=== PATIENT | female | born 1930 | race Caucasian/White ===

== ENCOUNTER 2018-04-01 21:08 | Emergency (ER) | payer OTHER ==
--- NOTE | 2018-04-01 21:18 | PDOC ---
History of Present Illness - General Stated Complaint: NOSE BLEEDS Time Seen by Provider: 04/01/18 21:18 Past History - Past Medical History Allergies/Adverse Reactions: Allergies Allergy/AdvReac Type Severity Reaction Status Date / Time No Known Drug Allergies Allergy Mild Verified 04/01/18 21:27 Home Medications: Ambulatory Orders Bimatoprost [Lumigan] 1 drop OU HS 12/12/12 Clopidogrel Bisulfate [Plavix -] 75 mg PO DAILY 12/12/12 Folic Acid - 1 mg PO DAILY 12/12/12 Furosemide [Lasix -] 20 mg PO DAILY 12/12/12 Levothyroxine [Synthroid -] 75 mcg PO DAILY 12/12/12 Carbidopa/Levodopa 25/250 [Sinemet 25/250 -] 1 each PO TID 10/02/15 Escitalopram Oxalate [Lexapro -] 5 mg PO HS 10/02/15 Metoprolol Succinate [Toprol XL -] 25 mg PO DAILY 10/02/15 Acetaminophen [Tylenol .Regular Strength -] 650 mg PO Q6H PRN #0 tablet Latanoprost 0.005% Eye Drops [Xalatan 0.005% Eye Drops -] 1 drop OU HS drops Allopurinol [Zyloprim -] 100 mg PO BID 01/09/16 Ascorbic Acid [Vitamin C] 500 mg PO DAILY 01/09/16 Bisacodyl Suppository [Dulcolax Suppository -] 10 mg RC HS PRN 01/09/16 Docusate Sodium [Colace -] 100 mg PO HS 01/09/16 Guaifenesin [Robitussin -] 100 mg PO PRN PRN 01/09/16 HYDROmorphone [Dilaudid -] 4 mg PO Q4H PRN 01/09/16 Lactulose [Generlac] 10 gm PO PRN PRN 01/09/16 Mirtazapine [Remeron -] 30 mg PO HS 01/09/16 Multivitamin with Iron [Daily Federico with Iron] 1 each PO DAILY 01/09/16 Sennosides [Senna -] 2 tab PO HS 01/09/16 clonazePAM [Klonopin -] 0.5 mg PO PRN PRN 01/09/16 Anemia: No Asthma: No Cancer: No Cardiac Disorders: No CVA: No COPD: No CHF: No Dementia: No Diabetes: No GI Disorders: No Disorders: No HTN: Yes Hypercholesterolemia: No Liver Disease: No Seizures: No Thyroid Disease: Yes (HYPOTHYROIDISM) - Surgical History Abdominal Surgery: No Appendectomy: No Cardiac Surgery: No Cholecystectomy: Yes (09/30) Lung Surgery: No Neurologic Surgery: No Orthopedic Surgery: Yes (LEFT SHOULDER SURGERY,REMOVAL CARTILAGE RIGHT KNEE, LEFT KNEE-REMOVAL OF FER) - Immunization History Immunization Up to Date: No - Suicide/Smoking/Psychosocial Hx Smoking History: Never smoked Have you smoked in the past 12 months: No Hx Alcohol Use: No Drug/Substance Use Hx: No Substance Use Type: None Hx Substance Use Treatment: No ED Treatment Course - LABORATORY CBC & Chemistry Diagram: 04/01/18 22:25 04/01/18 22:25 Medical Decision Making - Medical Decision Making Pt was seen at bedside, also will be seen by attending Dr. Cabrera. Pt presenting from [facility], complaining of nosebleeds since 3:00 pm this afternoon. Pt states PE showed [] Considering [vs vs] Ordered work-up including CBC, CMP, coags, and type and screen. Provided 1 L IV NS for improvement of dehydration. Will continue to reassess pt and monitor for symptomatic improvement. 04/01/18 21:40 Labs sent, pending. 04/01/18 22:39 CBC, CMP, and coags WNL. Considering normal lab results pt can be discharged to home with follow-up. Pt advised to follow-up with PCP in 1-2 days and has been referred to ENT (Dr. Gramajo) . Strict return precautions provided with pt understanding. 04/01/18 23:22 *DC/Admit/Observation/Transfer Diagnosis at time of Disposition: Nosebleed - Discharge Dispostion Disposition: [facility] Condition at time of disposition: Good Decision to Admit order: No - Prescriptions Prescriptions: Permethrin 5% Topical Cream [Elimite -] 1 applic TP ONCE #2 tube - Referrals Referrals: Nawaf Ladd MD [Staff Physician] - - Patient Instructions Printed Discharge Instructions: DI for Nosebleed Additional Instructions: You were seen in the ER today for a nosebleed. The results of your labs and imaging today were normal. Please follow-up with your primary care doctor and ENT (Dr. Avila) within 1-2 days to discuss your visit and make sure your symptoms have improved. Please return to the ER if you have any worsening pain, development of fevers or chills, loss of consciousness, inability to tolerate food or fluids, or any other concerns. The rash on your ankle may be due to scabies based on the way that it looks, and that it has not improved with fungal cream. Please provide permethrin 5% cream to entire body, wash off after 8-14 hours, and repeat after 1 week. - Post Discharge Activity
[2018-04-01 21:28] VITALS: BMI 26.5
[2018-04-01] MEDS ORDERED: SODIUM CHLORIDE 1,000 ML IV STA (21:41)
--- NOTE | 2018-04-01 22:27 | PDOC ---
Attending Attestation - HPI HPI: 04/01/18 23:30 Sister Bre Chowdhury is a 87 year old female with past medical history significant for Parkinsons disease, sarcoidosis, hypertension, hypothyroidism presents to the emergency department with nose bleeding. The patient presents with R. nare nose bleeding. The patient reports shes been having frequent episodes of nose bleeding, with the passing of blood clots. The patient admits to picking the nose, secondary to irritation. Denies shortness of breath, chest pain, abdominal pain, nausea, vomiting, or urinary symptoms. Allergies: NKDA PCP: From [facility]. - Physicial Exam PE: 04/01/18 23:43 GENERAL: Awake, alert, and fully oriented, in no acute distress HEAD: No signs of trauma EYES: PERRLA, EOMI, sclera anicteric, conjunctiva clear ENT: + R. nose at the medial aspect, had some dry blood, no other bleeding noted. oropharynx clear without exudates. Moist mucosa NECK: Normal ROM, supple, no lymphadenopathy, JVD, or masses LUNGS: Breath sounds equal, clear to auscultation bilaterally. No wheezes, and no crackles HEART: Regular rate and rhythm, normal S1 and S2, no murmurs, rubs or gallops ABDOMEN: Soft, nontender. No guarding, no rebound. No masses EXTREMITIES: Normal range of motion, no edema. No clubbing or cyanosis. No cords, erythema, or tenderness BACK: No midline spinal tenderness in cervical/thoracic/lumbar region NEUROLOGICAL: Normal speech, cranial nerves intact, SKIN: +L. medial ankle a rash is noted looks like a scabies, bruising noted in the inner left thigh. Warm, Dry, normal turgor, no rashes or lesions noted. - Medical Decision Making 04/01/18 23:30 Documentation prepared by Mary Lou Rojas, acting as biomedical equipment specialist for Justine Cabrera MD. <Mary Lou Rojas - Last Filed: 04/01/18 23:43> - Resident Resident Name: Antonette Howe - ED Attending Attestation I have performed the following: I have examined & evaluated the patient, The case was reviewed & discussed with the resident, I agree w/resident's findings & plan - HPI HPI: 04/01/18 22:45 Pt comes with a nosebleed, but she is hemodynamically stable in the ER here. - Medical Decision Making 04/02/18 23:27 hemodynamically stable; back to the NH <Justine Cabrera - Last Filed: 04/02/18 23:28>
[2018-04-01 22:41] LABS: BASO % 0.5 % (0-2.0); EOS % 4.2 % (0-4.5); HEMATOCRIT 34.2 % (32.4-45.2); HEMOGLOBIN 11.3 GM/dL (10.7-15.3); LYMPH % 23.5 % (8-40); MCH 30.9 pg (25.7-33.7); MCHC 32.9 g/dl (32.0-36.0); MEAN CELL VOLUME 93.9 fl (80-96); MEAN PLT VOLUME 7.9 fl (7.5-11.1); NEUT % 64.8 % (42.8-82.8); PLATELET COUNT 255 K/MM3 (134-434); RBC 3.64 M/mm3 (3.60-5.2); RDW 15.6 % (11.6-15.6); WHITE BLOOD COUNT 8.4 K/mm3 (4.0-10.0)
[2018-04-01 22:48] LABS: INR 1.02 (0.83-1.09)
[2018-04-01 22:51] LABS: ACTIVATED PTT 31.9 SECONDS (25.2-36.5)
[2018-04-01 23:01] LABS: ALBUMIN 3.1 g/dl (3.4-5.0); ALK PHOS 153 U/L (45-117); ANION GAP 9 MMOL/L (8-16); BILIRUBIN,TOTAL 0.3 mg/dL (0.2-1); BLOOD UREA NITROGEN 29 mg/dL (7-18); CALCIUM 8.3 mg/dL (8.5-10.1); CHLORIDE 106 mmol/L (98-107); CO2 24 mmol/L (21-32); CREATININE 1.3 mg/dL (0.55-1.3); GLUCOSE,RANDOM 93 mg/dL (74-106); POTASSIUM 3.8 mmol/L (3.5-5.1); SGOT/AST 11 U/L (15-37); SGPT/ALT < 6 U/L (13-61); SODIUM 139 mmol/L (136-145); TOT PROT 6.6 g/dl (6.4-8.2)
[2018-04-01 23:43] VITALS: BP 108/62; PULSE 81; TEMP 98.1
== END 2018-04-02 00:35 ==
LOC: JER 21:08
PROC: 3E0337Z Introduction of Electrolytic and Water Balance Substance into Peripheral Vein, Percutaneous Approach (ICD-10-PCS; principal; 2018-04-01)
DX: R04.0 Epistaxis (principal); I10 Essential (primary) hypertension; E03.9 Hypothyroidism, unspecified; G20 Parkinson's disease; R21 Rash and other nonspecific skin eruption
CPT/HCPCS: 36415; 80053; 85025; 85610; 85730; 86850; 86900; 86901; 96360; 99282-25; J7030

== ENCOUNTER 2018-09-26 06:29 | Day surgery (SDC) | payer OTHER | END 2018-09-26 11:00 | disposition home or self-care (01) | LOC: FASU 06:29 ==

== ENCOUNTER 2019-04-20 10:57 | Emergency (ER) | payer OTHER ==
[2019-04-20 11:37] VITALS: BMI 23.0
--- NOTE | 2019-04-20 12:02 | PDOC ---
Attending Attestation - Resident Resident Name: Antonio Sal - ED Attending Attestation I have performed the following: I have examined & evaluated the patient, The case was reviewed & discussed with the resident, I agree w/resident's findings & plan, Exceptions are as noted - HPI HPI: 04/20/19 12:07 Ms. Chowdhury is an 88 yo F who presents to the ER s/p a fall pt is a resident of the [facility], she has a h/o HTN, Hypothyroidism , Parkinson's disease, Heart failure, Sarcoidosis Pt apparently fell out of bed Sustained head trauma and was sent to the ER for assessment of head trauma she is noted in the ER to have abdominal pain - Physicial Exam PE: 04/20/19 12:13 GENERAL: The patient is in no acute distress, resting comfortably in bed HEENT: No external signs of head trauma, Ears normal, nares patent, oropharynx clear without exudates. Moist mucous membranes. NECK: Normal range of motion, supple, no medline tenderness LUNGS: Breath sounds equal, clear to auscultation bilaterally. No wheezes, and no crackles. HEART: Regular rate and rhythm, normal S1 and S2 without murmur, rub or gallop. ABDOMEN: Soft, RLQ and RUQ tenderness to palpation EXTREMITIES: Normal range of motion, no edema. NEUROLOGICAL: Cranial nerves II through XII grossly intact. Normal speech. No focal neurological deficits. SKIN: Warm, Dry, normal turgor, no rashes or lesions noted. - Medical Decision Making 04/20/19 12:02 88 o F presenting to the ER s/p fall from bed with head trauma Pt noted to have abdominal tenderness to palpation EKG - NSR rate of 62 bpm, axis nml, intervals abnormal, pr: 238ms, QRS: 76ms, QTc:446ms, no st elevation or depression, t waves upright 04/20/19 12:15 04/20/19 14:07 Laboratory Tests 04/20/19 04/20/19 04/20/19 12:20 12:20 12:20 WBC 8.1 Hgb 10.3 L Hct 32.1 L Plt Count 224 INR BUN 62.2 H Creatinine 2.3 H Alkaline Phosphatase 238 H Creatine Kinase 247 H Creatine Kinase Index 0.6 CK-MB (CK-2) 1.5 Troponin I < 0.02 04/20/19 12:20 WBC Hgb Hct Plt Count INR 1.04 BUN Creatinine Alkaline Phosphatase Creatine Kinase Creatine Kinase Index CK-MB (CK-2) Troponin I 04/20/19 14:08 CT head: No acute intracranial hemorrhage CT cervical spine: No evidence of fracture, subluxation Chest x-ray: No acute findings 04/20/19 14:08 04/20/19 14:09 04/20/19 14:32 Apparently patient had a scalp wound. This was cleaned and probed, Wound has scabbed There is no need to stable at this time Patient's abdominal examination reassess She is nontender She reports to me that she has upper extremity weakness which is chronic and is most prominent when she is using her walker Patient's friends at the bedside state that she has been put on tramadol for chronic back pain Are concerned that this may be too strong for her This was reviewed with Dr. Ladd We will discharge to [facility]
[2019-04-20 12:41] LABS: BASO % 1.1 % (0-2.0); HEMATOCRIT 32.1 % (32.4-45.2); HEMOGLOBIN 10.3 GM/dL (10.7-15.3); MEAN CELL VOLUME 93.6 fl (80-96); MEAN PLT VOLUME 9.8 fl (7.5-11.1); MONO % 5.9 % (3.8-10.2); PLATELET COUNT 224 K/MM3 (134-434); RBC 3.43 M/mm3 (3.60-5.2); RDW 16.6 % (11.6-15.6); WHITE BLOOD COUNT 8.1 K/mm3 (4.0-10.0)
[2019-04-20 13:00] LABS: INR 1.04 (0.83-1.09); PROTHROMBIN TIME (PATIENT) 12.3 SEC (9.7-13.0)
[2019-04-20 13:12] LABS: ALBUMIN 3.1 g/dl (3.4-5.0); BILIRUBIN,TOTAL 0.4 mg/dL (0.2-1); BLOOD UREA NITROGEN 62.2 mg/dL (7-18); CALCIUM 9.1 mg/dL (8.5-10.1); CREATININE 2.3 mg/dL (0.55-1.3); POTASSIUM 5.1 mmol/L (3.5-5.1); TOT PROT 7.4 g/dl (6.4-8.2)
--- NOTE | 2019-04-20 13:13 | PDOC ---
History of Present Illness - General Chief Complaint: Injury Stated Complaint: FALL Time Seen by Provider: 04/20/19 11:51 History Source: Patient Exam Limitations: No Limitations - History of Present Illness Initial Comments: 04/20/19 13:13 88 yo female pmh CHF, HTN, hypothyroidism, sarcoidosis presents to the ED after a fall with posterior head laceration (on plavix) presents to the ED after a fall. Pt states she attempted getting out of bed and fell to the ground, hit her head and had noted laceration to the back of her head. Pt denies STROUD, LOC, changes in vision, N/V, neck pain, weakness on 11 side of her body. Pt lives at [facility], ambulates occasionally with a rolling walker. PT denies CP/SOB/ palitations, abdominal pain, new back pain (hx of back pain) changes in bowel or bladder habits. Past History - Past Medical History Allergies/Adverse Reactions: Allergies Allergy/AdvReac Type Severity Reaction Status Date / Time No Known Drug Allergies Allergy Mild Verified 09/21/18 13:31 Home Medications: Ambulatory Orders Clopidogrel Bisulfate [Plavix -] 75 mg PO DAILY 12/12/12 Furosemide [Lasix -] 40 mg PO DAILY 12/12/12 Levothyroxine [Synthroid -] 75 mcg PO DAILY 12/12/12 Carbidopa/Levodopa 25/250 [Sinemet 25/250 -] 1 each PO QID 10/02/15 Escitalopram Oxalate [Lexapro -] 30 mg PO HS 10/02/15 Metoprolol Succinate [Toprol XL -] 25 mg PO DAILY 10/02/15 Acetaminophen [Tylenol .Regular Strength -] 650 mg PO Q6H PRN #0 tablet Latanoprost 0.005% Eye Drops [Xalatan 0.005% Eye Drops -] 1 drop OU HS drops Allopurinol [Zyloprim -] 100 mg PO BID 01/09/16 Ascorbic Acid [Vitamin C] 500 mg PO TID 01/09/16 Bisacodyl Suppository [Dulcolax Suppository -] 10 mg RC HS PRN 01/09/16 HYDROmorphone [Dilaudid -] 2 mg PO Q4H PRN 01/09/16 Lactulose [Generlac] 10 gm PO PRN PRN 01/09/16 Mirtazapine [Remeron -] 45 mg PO HS 01/09/16 Multivitamin with Iron [Daily Federico with Iron] 1 each PO DAILY 01/09/16 clonazePAM [Klonopin -] 0.5 mg PO PRN PRN 01/09/16 Cholecalciferol (Vitamin D3) [Vitamin D3] 1,000 unit PO DAILY 09/25/18 Clotrimazole [Clotrimazole AF] 28 gm TP BID 09/25/18 Cyanocobalamin (Vitamin B-12) [B-12 Compliance] 1,000 mcg IJ ASDIR 09/25/18 Cyclosporine [Restasis] 1 each OP BID 09/25/18 Latanoprost 0.005% Eye Drops [Xalatan 0.005% Eye Drops -] 1 drop OU HS 09/25/18 Levomefolate Calcium [l-Methylfolate Calcium] 7.5 mg PO DAILY 09/25/18 Mirabegron [Myrbetriq] 25 mg PO DAILY 09/25/18 Nutritional Supplement [Hi-Javier] 1,000 ml PO TID 09/25/18 Omeprazole 20 mg PO DAILY 09/25/18 Polyethylene Glycol 3350 [Miralax 119 gm Btl -] 17 gm PO DAILY 09/25/18 Polyvinyl Alcohol/Povidone/Pf [Refresh Classic Eye Drops] 1 each OP QID Pramipexole Dihydrochloride [Mirapex -] 0.5 mg PO HS 09/25/18 Propylene Glycol/Peg 400/Pf [Systane 0.3-0.4% Eye Drop] 1 each OP QID 09/25/18 Vit C/E/Zn/Coppr/Lutein/Zeaxan [Preservision Areds 2 Softgel] 2 each PO BID Anemia: No Asthma: No Cancer: No Cardiac Disorders: Yes (peripheral vascular disease.) CVA: No COPD: No CHF: Yes Dementia: No Diabetes: No Dialysis: No (Gout, parkinson, sarcoidosis, Glaucoma) GI Disorders: No Disorders: No HTN: Yes Hypercholesterolemia: No Liver Disease: No Psychiatric Problems: Yes (anxiety, Dysarthria/Anarthria, major derpessive disorder.) Seizures: No Thyroid Disease: Yes (HYPOTHYROIDISM) - Surgical History Abdominal Surgery: No Appendectomy: No Cardiac Surgery: No Cholecystectomy: Yes (09/30,) Lung Surgery: No Neurologic Surgery: No Orthopedic Surgery: Yes (LEFT SHOULDER SURGERY,REMOVAL CARTILAGE RIGHT KNEE, LEFT KNEE-REMOVAL OF FER) - Immunization History Immunization Up to Date: No - Psycho Social/Smoking Cessation Hx Smoking History: Never smoked Have you smoked in the past 12 months: No Information on smoking cessation initiated: No Hx Alcohol Use: No Drug/Substance Use Hx: No Substance Use Type: None Hx Substance Use Treatment: No Review of Systems - Review of Systems Constitutional: No: Chills, Fever HEENTM: No: Blurred Vision, Double Vision Respiratory: No: Shortness of Breath Cardiac (ROS): No: Chest Pain, Edema ABD/GI: No: Constipated, Diarrhea, Nausea, Vomiting Integumentary: Yes: Other (head) *Physical Exam - Vital Signs Last Vital Signs Temp Pulse Resp BP Pulse Ox 98 F 64 16 102/55 L 94 L 04/20/19 11:00 04/20/19 11:00 04/20/19 11:00 04/20/19 11:00 04/20/19 11:00 - Physical Exam General Appearance: Yes: Nourished, Appropriately Dressed. No: Apparent Distress HEENT: positive: EOMI, TARYN Neck: positive: Supple. negative: Carotid bruit Respiratory/Chest: positive: Lungs Clear, Normal Breath Sounds. negative: Respiratory Distress, Accessory Muscle Use, Crackles, Rales, Rhonchi, Stridor, Wheezing Cardiovascular: positive: Regular Rhythm, Regular Rate, S1, S2. negative: Edema , JVD, Murmur Gastrointestinal/Abdominal: positive: Flat, Soft. negative: Pulsatile Mass, Protuberent, Distended, Guarding, Rebound, Tenderness Extremity: positive: Normal Capillary Refill, Normal Inspection ED Treatment Course - LABORATORY CBC & Chemistry Diagram: 04/20/19 12:20 04/20/19 12:20 - ADDITIONAL ORDERS Additional order review: Laboratory Results 04/20/19 04/20/19 04/20/19 12:20 12:20 12:20 PT with INR 12.30 INR 1.04 Sodium 143 Potassium 5.1 Chloride 108 H Carbon Dioxide 27 Anion Gap 8 BUN 62.2 H Creatinine 2.3 H Est GFR (CKD-EPI)AfAm 21.43 Est GFR (CKD-EPI)NonAf 18.49 Random Glucose 80 Calcium 9.1 Total Bilirubin 0.4 AST 32 ALT 7 L Alkaline Phosphatase 238 H Total Protein 7.4 Albumin 3.1 L Lipase 136 04/20/19 12:20 RBC 3.43 L MCV 93.6 MCHC 32.0 RDW 16.6 H MPV 9.8 D Neutrophils % 74.0 Lymphocytes % 16.0 D Monocytes % 5.9 Eosinophils % 3.0 Basophils % 1.1 - RADIOLOGY Radiology Studies Ordered: Category Date Time Status CERVICAL SPINE CT W/O CONTR [CT] Stat CT Scan 04/20/19 11:[address] WITHOUT CONTRAST [CT] Stat CT Scan 04/20/19 11:36 Ordered CHEST X-RAY PORTABLE* [RAD] Stat Radiology 04/20/19 11:38 Completed Medical Decision Making - Medical Decision Making 04/20/19 14:31 Pt advocate at [facility] discussed Trazadone dosage, states pt is more tired at night. Dr. Ladd informed CT neg, pt safe for DC back to [facility] Discharge - Discharge Information Problems reviewed: Yes Clinical Impression/Diagnosis: Fall Disposition: HOME - Admission No - Follow up/Referral Referrals: Becca Ladd [Primary Care Provider] - - Patient Discharge Instructions Patient Printed Discharge Instructions: How to Prevent Falls Additional Instructions: Please see your Primary Doctor, discuss your Trazadone dosage and also your urine results and follow up for cultures. The urine cultures must be followed within 48 hours. If the patient develops fevers, start Antibiotics as per primary team at [facility]. Also discuss Plavix use with your primary medical team. Return to the ER for new or concerning symptoms including but not limited to: fevers, abdominal pain, inability to eat or drink, headaches, weakness. Thank you - Post Discharge Activity
[2019-04-20] MEDS ORDERED: ACETAMINOPHEN 1000 MG/100 ML VIAL (NON FORMULARY) IVPB ONE (13:36)
[2019-04-20] MEDS ORDERED: ACETAMINOPHEN INJECTION 100 ML IVPB ONE (13:41)
[2019-04-20 14:43] LABS: EPI CELLS 9.2 /HPF (0-5/HPF); HYALINE CASTS 12 /lpf (0-8); URINE APPEARANCE CLEAR; URINE BACTERIA 0.3 /hpf (NEGATIVE); URINE BILIRUBIN NEGATIVE (NEGATIVE); URINE COLOR YELLOW; URINE GLUCOSE (UA) NEGATIVE (NEGATIVE); URINE KETONE NEGATIVE (NEGATIVE); URINE LEUK ESTERASE 1+ (NEGATIVE); URINE NITRITE NEGATIVE (NEGATIVE); URINE PROTEIN TRACE (NEGATIVE); URINE RBC 1 /hpf (0-4); URINE UROBILINOGEN 0.2 mg/dL (0.2-1.0); URINE WBC 28 /hpf (0-5)
[2019-04-20 18:41] VITALS: BP 110/65; PULSE 68; TEMP 98.5
--- NOTE | 2019-04-21 23:22 | EKG ---
Test Reason : Blood Pressure : / mmHG Vent. Rate : 062 BPM Atrial Rate : 062 BPM P-R Int : 238 ms QRS Dur : 076 ms QT Int : 440 ms P-R-T Axes : 097 -27 019 degrees QTc Int : 446 ms SINUS RHYTHM WITH 1ST DEGREE A-V BLOCK OTHERWISE NORMAL ECG WHEN COMPARED WITH ECG OF 02-OCT-2015 09:39, NO SIGNIFICANT CHANGE WAS FOUND Confirmed by HARVEY SENIOR, CHAD ([id number]) on 04/21/2019 11:22:37 PM Referred By: Confirmed By:CHAD GABRIEL MD
== END 2019-04-20 18:41 ==
LOC: JER 10:57
PROC: 3E033NZ Introduction of Analgesics, Hypnotics, Sedatives into Peripheral Vein, Percutaneous Approach (ICD-10-PCS; principal; 2019-04-20)
DX: S09.8XXA Other specified injuries of head, initial encounter (principal); W06.XXXA Fall from bed, initial encounter; Y93.89 Activity, other specified; Y92.122 Bedroom in nursing home as the place of occurrence of the external cause; Y99.8 Other external cause status; I11.0 Hypertensive heart disease with heart failure; I50.9 Heart failure, unspecified; E03.9 Hypothyroidism, unspecified; G20 Parkinson's disease; M10.9 Gout, unspecified; H40.9 Unspecified glaucoma; F32.9 Major depressive disorder, single episode, unspecified; R47.1 Dysarthria and anarthria; D86.9 Sarcoidosis, unspecified
CPT/HCPCS: 36415; 70450-TC; 71045-TC-FY; 72125-TC; 80053; 81003; 82550; 82553; 83690; 84484; 85025; 85610; 87086; 93005; 93010; 96374; 99284-25; J0131

== ENCOUNTER 2019-05-04 02:59 | Emergency (ER) | payer OTHER ==
[2019-05-04 03:07] VITALS: BP 100/66; PULSE 73; TEMP 97.6; BMI 27.3
--- NOTE | 2019-05-04 03:17 | PDOC ---
History of Present Illness - General Chief Complaint: Injury Stated Complaint: FALL Time Seen by Provider: 05/04/19 03:02 History Source: Patient, Custodial Records Exam Limitations: No Limitations - History of Present Illness Initial Comments: 05/04/19 03:52 88yF "Sister Bre" with PMH of Parkinson's Disease, HTN, CHF, Arthritis, PVD, Hypothyroidism, Dysarthria BIBA from [facility] after a fall. Patient states she was getting up to use the bathroom when she lost her footing and fell. She states she hit the front of her head and immediately called for help. Denies LOC , neck pain, back pain chest pain, sob, abdominal pain, changes in vision, numbness/tingling. She states that she has fallen multiple times. She was seen here earlier this month for a fall. She is on Plavix. PMD: Androne PMH: see hpi Meds: see med rec Allergies: nkda Social: denies Past History - Past Medical History Allergies/Adverse Reactions: Allergies Allergy/AdvReac Type Severity Reaction Status Date / Time No Known Drug Allergies Allergy Mild Verified 05/04/19 03:01 Home Medications: Ambulatory Orders Clopidogrel Bisulfate [Plavix -] 75 mg PO DAILY 12/12/12 Furosemide [Lasix -] 40 mg PO DAILY 12/12/12 Levothyroxine [Synthroid -] 75 mcg PO DAILY 12/12/12 Carbidopa/Levodopa 25/250 [Sinemet 25/250 -] 1 each PO QID 10/02/15 Escitalopram Oxalate [Lexapro -] 30 mg PO HS 10/02/15 Metoprolol Succinate [Toprol XL -] 25 mg PO DAILY 10/02/15 Acetaminophen [Tylenol .Regular Strength -] 650 mg PO Q6H PRN #0 tablet Latanoprost 0.005% Eye Drops [Xalatan 0.005% Eye Drops -] 1 drop OU HS drops Allopurinol [Zyloprim -] 100 mg PO BID 01/09/16 Ascorbic Acid [Vitamin C] 500 mg PO TID 01/09/16 Bisacodyl Suppository [Dulcolax Suppository -] 10 mg RC HS PRN 01/09/16 HYDROmorphone [Dilaudid -] 2 mg PO Q4H PRN 01/09/16 Lactulose [Generlac] 10 gm PO PRN PRN 01/09/16 Mirtazapine [Remeron -] 45 mg PO HS 01/09/16 Multivitamin with Iron [Daily Federico with Iron] 1 each PO DAILY 01/09/16 clonazePAM [Klonopin -] 0.5 mg PO PRN PRN 01/09/16 Cholecalciferol (Vitamin D3) [Vitamin D3] 1,000 unit PO DAILY 09/25/18 Clotrimazole [Clotrimazole AF] 28 gm TP BID 09/25/18 Cyanocobalamin (Vitamin B-12) [B-12 Compliance] 1,000 mcg IJ ASDIR 09/25/18 Cyclosporine [Restasis] 1 each OP BID 09/25/18 Latanoprost 0.005% Eye Drops [Xalatan 0.005% Eye Drops -] 1 drop OU HS 09/25/18 Levomefolate Calcium [l-Methylfolate Calcium] 7.5 mg PO DAILY 09/25/18 Mirabegron [Myrbetriq] 25 mg PO DAILY 09/25/18 Nutritional Supplement [Hi-Javier] 1,000 ml PO TID 09/25/18 Omeprazole 20 mg PO DAILY 09/25/18 Polyethylene Glycol 3350 [Miralax 119 gm Btl -] 17 gm PO DAILY 09/25/18 Polyvinyl Alcohol/Povidone/Pf [Refresh Classic Eye Drops] 1 each OP QID Pramipexole Dihydrochloride [Mirapex -] 0.5 mg PO HS 09/25/18 Propylene Glycol/Peg 400/Pf [Systane 0.3-0.4% Eye Drop] 1 each OP QID 09/25/18 Vit C/E/Zn/Coppr/Lutein/Zeaxan [Preservision Areds 2 Softgel] 2 each PO BID Anemia: No Asthma: No Cancer: No Cardiac Disorders: Yes (peripheral vascular disease.) CVA: No COPD: No CHF: Yes Dementia: No Diabetes: No Dialysis: No (Gout, parkinson, sarcoidosis, Glaucoma) GI Disorders: No Disorders: No HTN: Yes Hypercholesterolemia: No Liver Disease: No Psychiatric Problems: Yes (anxiety, Dysarthria/Anarthria, major derpessive disorder.) Seizures: No Thyroid Disease: Yes (HYPOTHYROIDISM) - Surgical History Abdominal Surgery: No Appendectomy: No Cardiac Surgery: No Cholecystectomy: Yes (09/30,) Lung Surgery: No Neurologic Surgery: No Orthopedic Surgery: Yes (LEFT SHOULDER SURGERY,REMOVAL CARTILAGE RIGHT KNEE, LEFT KNEE-REMOVAL OF FER) - Immunization History Immunization Up to Date: No - Psycho Social/Smoking Cessation Hx Smoking History: Never smoked Have you smoked in the past 12 months: No Information on smoking cessation initiated: No Hx Alcohol Use: No Drug/Substance Use Hx: No Substance Use Type: None Hx Substance Use Treatment: No Review of Systems - Review of Systems Constitutional: No: Symptoms Reported HEENTM: No: Symptoms Reported Respiratory: No: Symptoms reported Cardiac (ROS): No: Symptoms Reported ABD/GI: No: Symptoms Reported : No: Symptoms Reported Musculoskeletal: Yes: See HPI Integumentary: No: Symptoms Reported Neurological: No: Symptoms reported *Physical Exam - Vital Signs Last Vital Signs Temp Pulse Resp BP Pulse Ox 97.6 F 73 16 100/66 99 05/04/19 03:01 05/04/19 03:01 05/04/19 03:01 05/04/19 03:01 05/04/19 03:01 - Physical Exam General Appearance: Yes: Nourished, Appropriately Dressed. No: Apparent Distress HEENT: positive: EOMI, TARYN, Other (superficial laceration on forehead <2cm. not actively bleeding. ) Neck: positive: Trachea midline, Supple. negative: Lymphadenopathy (R), Lymphadenopathy (L), Tender lateral, Tender midline Respiratory/Chest: positive: Lungs Clear, Normal Breath Sounds. negative: Crackles, Rales, Rhonchi, Stridor, Wheezing Cardiovascular: positive: Regular Rhythm, Regular Rate, S1, S2. negative: Edema , JVD, Murmur Gastrointestinal/Abdominal: positive: Normal Bowel Sounds, Soft. negative: Tender Musculoskeletal: positive: Other (R shoulder pain). negative: CVA Tenderness, Muscle Spasm, Vertebral Tenderness Extremity: positive: Normal Capillary Refill. 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 Patient is a reliable historian. vitals wnl patient has superficial laceration on forehead which can be repaired with dermabond (see procedure note). bruisining on R s h[place], will obtain xr. will also obtain basic labs, trop, ekg, cxr, shoulder xr and head ct, cspine ct. tylenol for pain labs at baseline. cr elevated at 2.1 however at last visit, cr was same. has had normal cr in the past. follows up with Dr Ladd. bun also elevated, likely dehydration. patient provided water to drink. xrays appear to be unremarkable. ct reads negative for bleed or fractures. no acute process. safe for dc back to [place]. Discharge - Discharge Information Problems reviewed: Yes Clinical Impression/Diagnosis: Laceration Fall Qualifiers: Encounter type: initial encounter Qualified Code(s): W19.XXXA - Unspecified fall, initial encounter Condition: Good Disposition: HALF-WAY FACILITY - Admission No - Follow up/Referral Referrals: Nawaf Ladd MD [Primary Care Provider] - - Patient Discharge Instructions Patient Printed Discharge Instructions: DI for Laceration Repair With Dermabond , How to Prevent Falls Additional Instructions: You were seen in the emergency room today after a fall. The blood work shows your kidney function has decreased but this is the same as the last time you were here. The CT is normal. Please keep the wound clean and dry. It was repaired with a skin glue. Come back to the emergency room if you have worsening headaches, have weakness in your arms, legs or face, the wound appears to be getting bigger or appears infected, you have difficulty or pain with urination or if any new or concerning symptom develops. Thank you - Post Discharge Activity
[2019-05-04] MEDS ORDERED: ACETAMINOPHEN 500 MG TABLET (FP) PO ONE (03:55)
[2019-05-04] MEDS ORDERED: ACETAMINOPHEN 325 MG TABLET (FP) ONE (04:11)
[2019-05-04 04:37] LABS: BASO % 0.7 % (0-2.0); HEMATOCRIT 35.4 % (32.4-45.2); HEMOGLOBIN 11.1 GM/dL (10.7-15.3); LYMPH % 12.2 % (8-40); MCH 29.4 pg (25.7-33.7); MCHC 31.5 g/dl (32.0-36.0); MEAN CELL VOLUME 93.4 fl (80-96); MEAN PLT VOLUME 9.3 fl (7.5-11.1); MONO % 6.1 % (3.8-10.2); PLATELET COUNT 250 K/MM3 (134-434); RBC 3.78 M/mm3 (3.60-5.2); RDW 16.6 % (11.6-15.6); WHITE BLOOD COUNT 11.4 K/mm3 (4.0-10.0)
--- NOTE | 2019-05-04 04:50 | PDOC ---
Attending Attestation - Resident Resident Name: Ayla Mcdaniel - ED Attending Attestation I have performed the following: I have examined & evaluated the patient, The case was reviewed & discussed with the resident, I agree w/resident's findings & plan, Exceptions are as noted - HPI HPI: 05/04/19 06:08 See resident HPI - Physicial Exam PE: 05/04/19 07:52 Agree with exam as documented by resident - Medical Decision Making 05/04/19 06:09 From [place] after mechanical fall f/u labs, ekg, imaging Labs with no acute derangements Imaging w/o acute injuries DC back to [place]
[2019-05-04 05:19] LABS: INR 0.95 (0.83-1.09); PROTHROMBIN TIME (PATIENT) 11.2 SEC (9.7-13.0)
[2019-05-04 05:22] LABS: ALK PHOS 188 U/L (45-117); ANION GAP 7 MMOL/L (8-16); BILIRUBIN,TOTAL 0.2 mg/dL (0.2-1); BLOOD UREA NITROGEN 35.4 mg/dL (7-18); CALCIUM 8.2 mg/dL (8.5-10.1); CHLORIDE 106 mmol/L (98-107); CO2 28 mmol/L (21-32); CREATININE 2.1 mg/dL (0.55-1.3); GLUCOSE,RANDOM 81 mg/dL (74-106); POTASSIUM 4.4 mmol/L (3.5-5.1); SGOT/AST 12 U/L (15-37); SGPT/ALT 7 U/L (13-61); SODIUM 141 mmol/L (136-145); TOT PROT 6.5 g/dl (6.4-8.2)
--- NOTE | 2019-05-04 10:48 | EKG ---
Test Reason : Blood Pressure : / mmHG Vent. Rate : 062 BPM Atrial Rate : 062 BPM P-R Int : 256 ms QRS Dur : 060 ms QT Int : 444 ms P-R-T Axes : 000 -28 -01 degrees QTc Int : 450 ms POOR DATA QUALITY, INTERPRETATION MAY BE ADVERSELY AFFECTED SINUS RHYTHM WITH 1ST DEGREE A-V BLOCK MINIMAL VOLTAGE CRITERIA FOR LVH, MAY BE NORMAL VARIANT WHEN COMPARED WITH ECG OF 20-APR-2019 11:51, NO SIGNIFICANT CHANGE WAS FOUND Confirmed by CED JEAN MD ([id number]) on 05/04/2019 10:48:34 AM Referred By: Confirmed By:CED JEAN MD
== END 2019-05-04 06:59 ==
LOC: JER 02:59
PROC: 0HQ1XZZ Repair Face Skin, External Approach (ICD-10-PCS; principal; 2019-05-04)
DX: S01.81XA Laceration without foreign body of other part of head, initial encounter (principal); W18.39XA Other fall on same level, initial encounter; Y93.89 Activity, other specified; Y92.122 Bedroom in nursing home as the place of occurrence of the external cause; Y99.8 Other external cause status; R29.6 Repeated falls; I11.0 Hypertensive heart disease with heart failure; I50.9 Heart failure, unspecified; E03.9 Hypothyroidism, unspecified; G20 Parkinson's disease; R47.1 Dysarthria and anarthria; F32.9 Major depressive disorder, single episode, unspecified; F41.9 Anxiety disorder, unspecified; M10.9 Gout, unspecified; I73.9 Peripheral vascular disease, unspecified; Z79.02 Long term (current) use of antithrombotics/antiplatelets
CPT/HCPCS: 36415; 70450-TC; 71045-TC-FY; 72125-TC; 73030-TC-RT-FY; 80053; 84484; 85025; 85610; 93005; 93010; 99282-25

== ENCOUNTER 2019-07-16 00:06 | Inpatient (IN) | payer OTHER ==
[2019-07-16] MEDS ORDERED: ACETAMINOPHEN 1000 MG/100 ML VIAL (NON FORMULARY) IVPB ONE (00:13)
[2019-07-16] MEDS ORDERED: ACETAMINOPHEN INJECTION 100 ML IVPB ONE (00:28)
[2019-07-16] MEDS ORDERED: SODIUM CHLORIDE 500 ML IV STA (00:29)
--- NOTE | 2019-07-16 00:29 | PDOC ---
History of Present Illness - General Chief Complaint: Pain Stated Complaint: LEFT HIP PAIN Time Seen by Provider: 07/16/19 00:12 History Source: Patient Exam Limitations: Clinical Condition, Dementia - History of Present Illness Initial Comments: 88 year old female with PMH Parkinson's Disease, HTN, CHF, Arthritis, PVD, Hypothyroidism, Dysarthria BIBA from [facility] for left hip pain s/p since Tuesday while being turned in bed. Pt reported she does not know why she is here. When asked about her pain she was unable to clarify where she was feeling pain. Pt is alert and oriented to person/place, but does not follow commands, and is confused about the care she is receiving. Fellow "Sister" (moravian) at bedside reported that Carlos took an XRay Tuesday, stated there was a femur fracture, but pt is hospice so she was not sent to ED. Pt continued to complain of pain and staff was unable to do basic care for her 2/2 her pain, prompting them to send her to the ED. PCP: [facility] Proxy: Emily Durham - [phone] (H) [phone] (C) ROS Unable to perform 2/2 pt's mental status PE Constitutional: Well-nourished, Well-developed, appearing stated age. Airway: intact Breathing: bilateral breath sounds Circulation: 2+ carotid pulse B/L HEENT: head is normocephalic, atraumatic. No facial bones tenderness to palpation. No del toro sign. No raccoon eyes. EOMI. PERRLA. Neck: supple. Full ROM. no midline c-spine tenderness to palpation. No step offs . Cardiovascular: regular heart rhythm. no murmurs. no pericardial friction rub. Chest wall: No tenderness to palpation of anterior chest wall. No deformity to anterior chest wall. Respiratory: clear to auscultation bilaterally. no crackles, rhonchi or wheezing. no stridor. Gastrointestinal: soft, nontender. normal bowel sounds. no rebound, guarding, masses. No ecchymoses. Back: no midline T-spine or L-spine tenderness to palpation. No step offs. Pelvis: left lower extremity externally rotated and shortened. right lower extremity active knee extension/flexion and hip flexion/extension without difficulty. Extremities: peripheral pulses intact. no lower extremity edema. Neurological: CN 2-12 grossly intact. moves all four extremities. Psych: intermittently moans in pain, but if left alone will fall asleep. oriented to person and place. does not follows commands. Past History - Past Medical History Allergies/Adverse Reactions: Allergies Allergy/AdvReac Type Severity Reaction Status Date / Time No Known Drug Allergies Allergy Mild Verified 07/16/19 00:12 Home Medications: Ambulatory Orders Clopidogrel Bisulfate [Plavix -] 75 mg PO DAILY 12/12/12 Furosemide [Lasix -] 40 mg PO DAILY 12/12/12 Levothyroxine [Synthroid -] 75 mcg PO DAILY 12/12/12 Escitalopram Oxalate [Lexapro -] 30 mg PO HS 10/02/15 Metoprolol Succinate [Toprol XL -] 25 mg PO DAILY 10/02/15 Ascorbic Acid [Vitamin C] 500 mg PO TID 01/09/16 Mirtazapine [Remeron -] 45 mg PO HS 01/09/16 Cholecalciferol (Vitamin D3) [Vitamin D3] 1,000 unit PO DAILY 09/25/18 Cyanocobalamin (Vitamin B-12) [B-12 Compliance] 1,000 mcg IM ASDIR 09/25/18 Cyclosporine [Restasis] 1 each OS BID 09/25/18 Mirabegron [Myrbetriq] 25 mg PO DAILY 09/25/18 Omeprazole 20 mg PO DAILY 09/25/18 Polyethylene Glycol 3350 [Miralax 119 gm Btl -] 17 gm PO DAILY 09/25/18 Pramipexole Dihydrochloride [Mirapex -] 0.5 mg PO HS 09/25/18 Bupropion HCl [Bupropion HCl Sr] 100 mg PO DAILY 05/04/19 Pregabalin [Lyrica -] 50 mg PO BID 05/04/19 Acetaminophen [Tylenol] 650 mg PO TID PRN 07/16/19 Bacitracin - [Bacitracin Topical Ointment -] 1 applic TP BID 07/16/19 Bisacodyl Suppository [Dulcolax Suppository -] 10 mg RC HS PRN 07/16/19 Bupropion HCl [Bupropion HCl ER] 100 mg PO DAILY 07/16/19 Carbidopa/Levodopa [Carbidopa-Levo ER 50-200 Tab] 1 each PO QID 07/16/19 Clotrimazole [Clotrimazole AF] 1 applic TP BID 07/16/19 Cran-Raspberry Flavor 30 ml PO DAILY 07/16/19 Ferrous Sulfate [Feosol] 325 mg PO DAILY 07/16/19 Fluoride (Sodium) [Denta 5000 Plus] 1 applic DT HS 07/16/19 Lactulose 10 gm PO DAILY PRN 07/16/19 Latanoprost 0.005% Eye Drops [Xalatan 0.005% Eye Drops -] 1 drop HS 07/16/19 Latanoprost 0.005% Eye Drops [Xalatan 0.005% Eye Drops -] 1 drop OS HS 07/16/19 Levomefolate/Algal Oil [l-Methylfolate Forte 7.5 mg Cp] 1 each PO AM 07/16/19 Lidocaine 4% Topical [Xylocaine 4% Topical] 1 applic MM DAILY 07/16/19 Multivitamin [Multiple Vitamins] 1 each PO DAILY 07/16/19 Nutritional Supplement [Hi-Javier] 4 oz PO TID 07/16/19 Ondansetron [Zofran -] 4 mg PO Q8H 07/16/19 Polyvinyl Alcohol/Povidone/Pf [Refresh Classic Eye Drops] 1 each OP Q3H 07/16/19 Propylene Glycol/Peg 400/Pf [Systane 0.3-0.4% Eye Drops] 1 each OP QID 07/16/19 Tramadol HCl [Ultram] 50 mg PO Q8H PRN 07/16/19 Vit A/Vit C/Vit E/Zinc/Copper [Preservision Tablet] 2 each PO BID 07/16/19 Vitamin A & D Top Oint - [Vitamin A & D] 1 applic TP QSHIFT 07/16/19 - Surgical History Abdominal Surgery: No Appendectomy: No Cardiac Surgery: No Cholecystectomy: Yes (09/30,) Lung Surgery: No Neurologic Surgery: No Orthopedic Surgery: Yes (LEFT SHOULDER SURGERY,REMOVAL CARTILAGE RIGHT KNEE,LEFT KNEE-REMOVAL OF FER) - Immunization History Immunization Up to Date: No - Psycho Social/Smoking Cessation Hx Smoking History: Unknown if ever smoked Have you smoked in the past 12 months: No Hx Alcohol Use: (WILFRED) Drug/Substance Use Hx: (WILFRED) Substance Use Type: None Hx Substance Use Treatment: No *Physical Exam - Vital Signs Last Vital Signs Temp Pulse Resp BP Pulse Ox 97.9 F 77 20 104/56 L 94 L 07/16/19 00:12 07/16/19 00:12 07/16/19 00:12 07/16/19 00:12 07/16/19 00:12 ED Treatment Course - LABORATORY CBC & Chemistry Diagram: 07/17/19 13:20 07/17/19 13:20 - RADIOLOGY Radiology Studies Ordered: Category Date Time Status CERVICAL SPINE CT W/O CONTR [CT] Stat CT Scan 07/16/19 00:[address] WITHOUT CONTRAST [CT] Stat CT Scan 07/16/19 00:24 Ordered CHEST - PA [RAD] Stat Radiology 07/16/19 00:13 Ordered PELVIS [RAD] Stat Radiology 07/16/19 00:13 Ordered Medical Decision Making - Medical Decision Making 88 year old female with above PMH sent to ED from [place] for left hip pain s/p being turned in bed today. Initial Vital Signs Temp Pulse Resp BP Pulse Ox 97.9 F 77 20 104/56 L 94 L 07/16/19 00:12 07/16/19 00:12 07/16/19 00:12 07/16/19 00:12 07/16/19 00:12 Afebrile. No tachycardia. No tachypnea. Mild hypotension. Borderline hypoxia on room air. Labs ordered: CBC, CMP, T&S, coags, Medications ordered: tylenol IV, normal saline bolus 500 cc once Imaging ordered: pelvis XR, chest XR, CT head, CT cervical spine EKG: rate 78, regular rhythm, normal axis, QTc 490, no acute ST changes. 07/16/19 01:14 CT head report: Comments: Earl Foster MD wrote on Jul 16, 2019 at 01:11 AM: Referring Physician: SERVANDO GUERRA Patient Name: NOMI GREENE THIS IS A PRELIMINARY REPORT FROM [facility] DATE OF SERVICE: 2019-07-16 00:48:54 IMAGES: 240 EXAM: HEAD CT WITHOUT CONTRAST HISTORY: Trauma COMPARISON: None. FINDINGS: The ventricular system is midline and nondilated. Mild to moderate cortical atrophy and minimal small vessel ischemic changes are noted.. There is no bleed, mass, extra-axial fluid collection or mass effect. No skull fracture or skull lesion is identified. The visualized paranasal sinuses and mastoid air cells are clear. Metallic device in the anterior right orbit. IMPRESSION: No acute pathology One or more of the following dose reduction techniques were used: automated exposure control, adjustment of the mA and/or kV according to patient size, use of iterative reconstructive technique. THIS DOCUMENT HAS BEEN ELECTRONICALLY SIGNED Maynor Foster MD 07/16/2019 01:09 NAN Tamayo Please call [facility] [phone]) with questions. Earl Foster MD Laboratory Last Values WBC 11.7 K/mm3 (4.0-10.0) H 07/16/19 00:13 RBC 3.41 M/mm3 (3.60-5.2) L 07/16/19 00:13 Hgb 9.8 GM/dL (10.7-15.3) L 07/16/19 00:13 Hct 31.4 % (32.4-45.2) L 07/16/19 00:13 MCV 92.2 fl (80-96) 07/16/19 00:13 MCH 28.7 pg (25.7-33.7) 07/16/19 00:13 MCHC 31.2 g/dl (32.0-36.0) L 07/16/19 00:13 RDW 18.1 % (11.6-15.6) H 07/16/19 00:13 Plt Count 226 K/MM3 (134-434) 07/16/19 00:13 MPV 9.4 fl (7.5-11.1) 07/16/19 00:13 Absolute Neuts (auto) 9.7 K/mm3 (1.5-8.0) H 07/16/19 00:13 Neutrophils % 82.9 % (42.8-82.8) H 07/16/19 00:13 Lymphocytes % 8.7 % (8-40) D 07/16/19 00:13 Monocytes % 6.8 % (3.8-10.2) 07/16/19 00:13 Eosinophils % 0.9 % (0-4.5) 07/16/19 00:13 Basophils % 0.7 % (0-2.0) 07/16/19 00:13 Nucleated RBC % 0 % (0-0) 07/16/19 00:13 PT with INR 14.10 SEC (9.7-13.0) H 07/16/19 00:13 INR 1.19 (0.83-1.09) H 07/16/19 00:13 PTT (Actin FS) 31.9 SECONDS (25.2-36.5) 07/16/19 00:13 Sodium 146 mmol/L (136-145) H 07/16/19 00:13 Potassium 5.4 mmol/L (3.5-5.1) H 07/16/19 00:13 Chloride 111 mmol/L (98-107) H 07/16/19 00:13 Carbon Dioxide 26 mmol/L (21-32) 07/16/19 00:13 Anion Gap 9 MMOL/L (8-16) 07/16/19 00:13 BUN 76.4 mg/dL (7-18) H 07/16/19 00:13 Creatinine 3.3 mg/dL (0.55-1.3) H 07/16/19 00:13 Est GFR (CKD-EPI)AfAm 13.85 07/16/19 00:13 Est GFR (CKD-EPI)NonAf 11.95 07/16/19 00:13 Random Glucose 106 mg/dL (74-106) 07/16/19 00:13 Calcium 8.0 mg/dL (8.5-10.1) L 07/16/19 00:13 Total Bilirubin 0.4 mg/dL (0.2-1) 07/16/19 00:13 AST 12 U/L (15-37) L 07/16/19 00:13 ALT < 6 U/L (13-61) L 07/16/19 00:13 Alkaline Phosphatase 158 U/L (45-117) H 07/16/19 00:13 Total Protein 6.5 g/dl (6.4-8.2) 07/16/19 00:13 Albumin 2.6 g/dl (3.4-5.0) L 07/16/19 00:13 Mild leukocytosis with left shift. Normocytic anemia. Borderline hypernatremia Mild hyperkalemia RICCO Will continue to slowly IV fluid hydrate 07/16/19 01:23 CT cervical spine report: Comments: Earl Foster MD wrote on Jul 16, 2019 at 01:11 AM: Referring Physician: SERVANDO GUERRA Patient Name: NOMI GREENE THIS IS A PRELIMINARY REPORT FROM [facility] DATE OF SERVICE: 2019-07-16 00:48:54 IMAGES: 240 EXAM: HEAD CT WITHOUT CONTRAST HISTORY: Trauma COMPARISON: None. FINDINGS: The ventricular system is midline and nondilated. Mild to moderate cortical atrophy and minimal small vessel ischemic changes are noted.. There is no bleed, mass, extra-axial fluid collection or mass effect. No skull fracture or skull lesion is identified. The visualized paranasal sinuses and mastoid air cells are clear. Metallic device in the anterior right orbit. IMPRESSION: No acute pathology. One or more of the following dose reduction techniques were used: automated exposure control, adjustment of the mA and/or kV according to patient size, use of iterative reconstructive technique. THIS DOCUMENT HAS BEEN ELECTRONICALLY SIGNED Maynor Foster MD 07/16/2019 01:09 NAN Tamayo Please call [facility] [phone] ([phone]) with questions. Earl Foster MD Pelvis XR shows left hip fracture per my read. -Pending official report 07/16/19 01:[address] Ladd, sign out given. Pt is pending gibson placement, UA/UC collection. 07/16/19 02:10 Bill pus visualized from Gibson catheter. Discharge - Discharge Information Problems reviewed: Yes Clinical Impression/Diagnosis: Hip fracture, RICCO (acute kidney injury), Hyperkalemia Condition: Guarded - Admission Yes - Follow up/Referral - Patient Discharge Instructions - Post Discharge Activity
[2019-07-16 00:32] LABS: BASO % 0.7 % (0-2.0); EOS % 0.9 % (0-4.5); HEMATOCRIT 31.4 % (32.4-45.2); HEMOGLOBIN 9.8 GM/dL (10.7-15.3); LYMPH % 8.7 % (8-40); MCH 28.7 pg (25.7-33.7); MCHC 31.2 g/dl (32.0-36.0); MEAN CELL VOLUME 92.2 fl (80-96); MEAN PLT VOLUME 9.4 fl (7.5-11.1); MONO % 6.8 % (3.8-10.2); NEUT % 82.9 % (42.8-82.8); PLATELET COUNT 226 K/MM3 (134-434); RBC 3.41 M/mm3 (3.60-5.2); RDW 18.1 % (11.6-15.6); WHITE BLOOD COUNT 11.7 K/mm3 (4.0-10.0)
[2019-07-16 00:44] LABS: INR 1.19 (0.83-1.09); PROTHROMBIN TIME (PATIENT) 14.1 SEC (9.7-13.0)
[2019-07-16 00:59] LABS: ALBUMIN 2.6 g/dl (3.4-5.0); ALK PHOS 158 U/L (45-117); ANION GAP 9 MMOL/L (8-16); BILIRUBIN,TOTAL 0.4 mg/dL (0.2-1); BLOOD UREA NITROGEN 76.4 mg/dL (7-18); CHLORIDE 111 mmol/L (98-107); CO2 26 mmol/L (21-32); CREATININE 3.3 mg/dL (0.55-1.3); GLUCOSE,RANDOM 106 mg/dL (74-106); POTASSIUM 5.4 mmol/L (3.5-5.1); SGOT/AST 12 U/L (15-37); SGPT/ALT < 6 U/L (13-61); SODIUM 146 mmol/L (136-145); TOT PROT 6.5 g/dl (6.4-8.2)
--- NOTE | 2019-07-16 01:26 | PDOC ---
Documentation entered by Mary Lou Rojas SCRIBE, acting as scribe for Fatmata Poole MD. Fatmata Poole MD: This documentation has been prepared by the brookeibe, Mary Lou Rojas SCRIBE, under my direction and personally reviewed by me in its entirety. I confirm that the documentation accurately reflects all work, treatment, procedures, and medical decision making performed by me. Attending Attestation - Resident Resident Name: Jada Pineda - ED Attending Attestation I have performed the following: I have examined & evaluated the patient, The case was reviewed & discussed with the resident, I agree w/resident's findings & plan, Exceptions are as noted - HPI HPI: 07/16/19 01:30 The patient is an 88-year-old female with a past medical history significant for advanced Parkinson's disease, HTN, CHF, PVD, hypothyroidism presents to the emergency department from [facility] via EMS for intractable pain. [facility] reports, they rolled the patient in bed yesterday, following the patient complaining of left hip pain. The patient had an X-ray done yesterday, which was significant for a femur fracture. The patient presents today for intractable pain. The patient is on hospice care at the [facility]. - Physicial Exam PE: 07/16/19 01:44 GENERAL: elderly 88 year old female. Currently nonverbal. No apparent distress. HEENT: No scalp laceration. Dry mucous membranes. Normocephalic, atraumatic. PERRL, EOM intact. CARDIOVASCULAR: Regular rate and rhythm. PULMONARY: No crackles or wheezing. Clear to auscultation bilaterally. ABDOMEN: Soft, non-distended, non-tender. EXTREMITIES: +left extremity externally rotated and foreshortened. SKIN: Scattered ecchymosis to bilateral lower extremities of various stages Warm, dry. NEUROLOGICAL: nonverbal, sleeping. - Medical Decision Making 07/16/19 01:33 88-year-old female with advanced Parkinson's brought in by ambulance from detention intractable pain. [facility] reports that she was moved in bed on Tuesday resulting in a femur fracture that they saw on x-ray. 07/16/19 01:55 CAT scan of the head did not show any acute intracranial pathology Left hip pelvis radiograph reveals left hip fracture surgical neck 07/16/19 01:55 Admit for intractable pain
[2019-07-16 02:24] LABS: EPI CELLS 13.3 /HPF (0-5/HPF); HYALINE CASTS 2 /lpf (0-8); URINE APPEARANCE TURBID; URINE BACTERIA 684.8 /hpf (NEGATIVE); URINE BILIRUBIN NEGATIVE (NEGATIVE); URINE COLOR YELLOW; URINE GLUCOSE (UA) NEGATIVE (NEGATIVE); URINE KETONE TRACE (NEGATIVE); URINE LEUK ESTERASE 3+ (NEGATIVE); URINE NITRITE NEGATIVE (NEGATIVE); URINE PROTEIN 2+ (NEGATIVE); URINE RBC 0 /hpf (0-4); URINE UROBILINOGEN 0.2 mg/dL (0.2-1.0); URINE WBC 27 /hpf (0-5)
[2019-07-16 05:34] VITALS: BMI 22.7
[2019-07-16] MEDS ORDERED: LACTULOSE 20 GM/30 ML UDC (FOR ORAL USE ONLY) PO PRN (08:03)
[2019-07-16] MEDS ORDERED: ACETAMINOPHEN 325 MG TABLET (FP) PO PRN (08:03)
[2019-07-16] MEDS ORDERED: traMADol HCL 50 MG TABLET PO PRN (08:03)
[2019-07-16] MEDS ORDERED: BISACODYL 10 MG SUPP.RECT RC PRN (08:03)
[2019-07-16] MEDS ORDERED: SODIUM CHLORIDE 1,000 ML IV SCH (08:15)
[2019-07-16] MEDS ORDERED: ONDANSETRON 4 MG TABLET PO PRN (08:15)
--- NOTE | 2019-07-16 09:16 | EKG ---
Test Reason : Blood Pressure : / mmHG Vent. Rate : 078 BPM Atrial Rate : 078 BPM P-R Int : 202 ms QRS Dur : 072 ms QT Int : 430 ms P-R-T Axes : 087 -29 021 degrees QTc Int : 490 ms SINUS RHYTHM WITH OCCASIONAL PREMATURE VENTRICULAR COMPLEXES PROLONGED QT ABNORMAL ECG WHEN COMPARED WITH ECG OF 04-MAY-2019 03:37, PREMATURE VENTRICULAR COMPLEXES ARE NOW PRESENT NC INTERVAL HAS DECREASED Confirmed by Santi Anton ([id number]) on 07/16/2019 9:16:23 AM Referred By: Confirmed By:Santi Anton
[2019-07-16] MEDS ORDERED: BUPROPION HCL 100 MG PO SCH ×2 (10:00)
[2019-07-16] MEDS ORDERED: FUROSEMIDE 20 MG TABLET (FP) PO SCH (10:00)
[2019-07-16] MEDS ORDERED: PATIENT'S OWN MEDICATION (NON-FORMULARY) (Cyclosporine [Restasis] 1 EACH) OS SCH (10:00)
[2019-07-16] MEDS ORDERED: CLOPIDOGREL BISULFATE 75 MG TABLET (FP) PO SCH (10:00)
[2019-07-16] MEDS ORDERED: PATIENT'S OWN MEDICATION (NON-FORMULARY) (Mirabegron [Myrbetriq] 25 MG) PO SCH (10:00)
[2019-07-16] MEDS: CHOLECALCIFEROL (VIT D3) 1,000 UNIT (25 MCG) TABLET PO SCH (11:01)
[2019-07-16] MEDS: metoPROLOL SUCCINATE 25 MG TAB.SR.24H (FP) PO SCH (11:01)
[2019-07-16] MEDS: POLYETHYLENE GLYCOL 3350 119 GM BTL PO SCH (11:01)
[2019-07-16] MEDS: MULTIVITAMINS (DAILY MVI) TABLET (FP) PO SCH (11:01)
[2019-07-16] MEDS: LEVOTHYROXINE NA 75 MCG TABLET (FP) PO SCH (11:01)
[2019-07-16] MEDS: PREGABALIN 50 MG CAPSULE PO SCH ×2 (11:01→21:31)
[2019-07-16] MEDS: ACETAMINOPHEN 1000 MG/100 ML VIAL (NON FORMULARY) IVPB PRN ×2 (11:23→18:27)
[2019-07-16] MEDS: LIDOCAINE 5% TOPICAL PATCH TP SCH (11:23)
[2019-07-16] MEDS: BACITRACIN 15 GM TUBE TOPICAL OINTMENT TP SCH ×2 (11:24→23:53)
[2019-07-16] MEDS: CLOTRIMAZOLE 1% CREAM 15 GM TUBE TP SCH ×2 (11:24→23:53)
--- NOTE | 2019-07-16 11:35 | CON.CARD ---
Consult Consult Specialty:: CV - History of Present Illness Chief Complaint: hip pain History of Present Illness: 88-year-old female here with hip pains NH reports they rolled the patient in bed yesterday, following the patient complaining of left hip pain. The patient had an X-ray done yesterday, which was significant for a femur fracture. The patient presents today for intractable pain. The patient is on [facility] care at the correction. we are asked to consult on cv risk of planned hip repair pt ? with dementia. 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: Yes: Parkinson's (sarcoidosis) Cardio/Vascular: Yes: HTN, Hyperlipdemia Pulmonary: Yes: Other (sarcoidosis) ...: No Psych: Yes: Depression Endocrine: Yes: Hypothyroidism - Alcohol/Substance Use Hx Alcohol Use: (WILFRED) - Smoking History Smoking history: Unknown if ever smoked Have you smoked in the past 12 months: No Home Medications - Allergies Allergies/Adverse Reactions: Allergies Allergy/AdvReac Type Severity Reaction Status Date / Time No Known Drug Allergies Allergy Mild Verified 07/16/19 00:12 - Home Medications Home Medications: Ambulatory Orders Clopidogrel Bisulfate [Plavix -] 75 mg PO DAILY 12/12/12 Furosemide [Lasix -] 40 mg PO DAILY 12/12/12 Levothyroxine [Synthroid -] 75 mcg PO DAILY 12/12/12 Escitalopram Oxalate [Lexapro -] 30 mg PO HS 10/02/15 Metoprolol Succinate [Toprol XL -] 25 mg PO DAILY 10/02/15 Ascorbic Acid [Vitamin C] 500 mg PO TID 01/09/16 Mirtazapine [Remeron -] 45 mg PO HS 01/09/16 Cholecalciferol (Vitamin D3) [Vitamin D3] 1,000 unit PO DAILY 09/25/18 Cyanocobalamin (Vitamin B-12) [B-12 Compliance] 1,000 mcg IM ASDIR 09/25/18 Cyclosporine [Restasis] 1 each OS BID 09/25/18 Mirabegron [Myrbetriq] 25 mg PO DAILY 09/25/18 Omeprazole 20 mg PO DAILY 09/25/18 Polyethylene Glycol 3350 [Miralax 119 gm Btl -] 17 gm PO DAILY 09/25/18 Pramipexole Dihydrochloride [Mirapex -] 0.5 mg PO HS 09/25/18 Bupropion HCl [Bupropion HCl Sr] 100 mg PO DAILY 05/04/19 Pregabalin [Lyrica -] 50 mg PO BID 05/04/19 Acetaminophen [Tylenol] 650 mg PO TID PRN 07/16/19 Bacitracin - [Bacitracin Topical Ointment -] 1 applic TP BID 07/16/19 Bisacodyl Suppository [Dulcolax Suppository -] 10 mg RC HS PRN 07/16/19 Bupropion HCl [Bupropion HCl ER] 100 mg PO DAILY 07/16/19 Carbidopa/Levodopa [Carbidopa-Levo ER 50-200 Tab] 1 each PO QID 07/16/19 Clotrimazole [Clotrimazole AF] 1 applic TP BID 07/16/19 Cran-Raspberry Flavor 30 ml PO DAILY 07/16/19 Ferrous Sulfate [Feosol] 325 mg PO DAILY 07/16/19 Fluoride (Sodium) [Denta 5000 Plus] 1 applic DT HS 07/16/19 Lactulose 10 gm PO DAILY PRN 07/16/19 Latanoprost 0.005% Eye Drops [Xalatan 0.005% Eye Drops -] 1 drop HS 07/16/19 Latanoprost 0.005% Eye Drops [Xalatan 0.005% Eye Drops -] 1 drop OS HS 07/16/19 Levomefolate/Algal Oil [l-Methylfolate Forte 7.5 mg Cp] 1 each PO AM 07/16/19 Lidocaine 4% Topical [Xylocaine 4% Topical] 1 applic MM DAILY 07/16/19 Multivitamin [Multiple Vitamins] 1 each PO DAILY 07/16/19 Nutritional Supplement [Hi-Javier] 4 oz PO TID 07/16/19 Ondansetron [Zofran -] 4 mg PO Q8H 07/16/19 Polyvinyl Alcohol/Povidone/Pf [Refresh Classic Eye Drops] 1 each OP Q3H Propylene Glycol/Peg 400/Pf [Systane 0.3-0.4% Eye Drops] 1 each OP QID 07/16/19 Tramadol HCl [Ultram] 50 mg PO Q8H PRN 07/16/19 Vit A/Vit C/Vit E/Zinc/Copper [Preservision Tablet] 2 each PO BID 07/16/19 Vitamin A & D Top Oint - [Vitamin A & D] 1 applic TP QSHIFT 07/16/19 Family Medical History Family History: Unable to Obtain Review of Systems Unable to obtain ROS, reason: non verbal Vital Signs: Vital Signs Temperature 98.1 F 07/16/19 09:13 Pulse Rate 76 07/16/19 09:13 Respiratory Rate 20 07/16/19 09:13 Blood Pressure 117/45 L 07/16/19 09:13 O2 Sat by Pulse Oximetry (%) 95 07/16/19 09:00 Constitutional: Yes: Well Nourished, No Distress Eyes: No: Sclera Icterus HENT: No: Nasal Congestion Neck: No: Decreased ROM Respiratory: Yes: Regular, CTA Bilaterally (not taking deep breaths). No: Accessory Muscle Use, Rales Gastrointestinal: Yes: Normal Bowel Sounds. No: Distention, Hepatomegaly, Palpable Mass, Tenderness Cardiovascular: Yes: Regular Rate and Rhythm JVD: No Carotid Bruit: No PMI: Non-Displaced Heart Sounds: Yes: S1, S2. No: Gallop Murmur: No: Systolic Murmur, Diastolic Murmur Musculoskeletal: Yes: Other (No kyphosis) Extremities: No: Cool, Cyanosis Edema: No Peripheral Pulses: 2+ Left Carotid, 2+ Right Carotid, 2+ Left Doralis Pedis, 2+ Right Dorsalis Pedis Integumentary: No: Jaundice Neurological: No: Seizure, Tremors Psychiatric: No: Agitated - Other Data Labs, Other Data: CBC, BMP 07/16/19 00:13 07/16/19 00:13 INR, PTT INR 1.19 (0.83-1.09) H 07/16/19 00:13 Assessment/Plan ECG: NSR, WNL (QT not signif prolonged) CXR: acute infiltrates upper lobes and R base on chronic findings CHF, ? details: -no prior echo available here -CXR image reviewed--l? vasc engorgement, ? mild pulm edema incr vs 05/03 -BNP not helpful in RICCO -she has very dry mucous membranes and prerenal azotemia picture, acute -likely intravasc depleted--observe closely with gentle hydration -check echo for EF (no murmurs) RICCO on CKD, mild hypernatremia/hyperK: -bun creat 70s/3.3 from 30s/2.1 in 05/03 -gentle hydration: change NS to 1/2 NS to avoid worsening hyperNa HTN: -bp controlled -cont same treatment anemia: -acute on chronic (vs 05/03) -per primary hip fracture, preop CV eval: -pt at hi risk of surgical CV complications given presently with RICCO and possibly underlying component of mild CHF, as well as electrolyte disturbances -these should be reversible--will optimize her clinical status, hopefully quickly
[2019-07-16] MEDS ORDERED: SODIUM CHLORIDE 0.45% 1,000 ML IV SCH (11:45)
--- NOTE | 2019-07-16 11:50 | HP ---
Admitting History and Physical - Primary Care Physician PCP: Nawaf Ladd - Admission Chief Complaint: leg pain History of Present Illness: 88 year old female with PMH Parkinson's Disease, HTN, CHF, Arthritis, PVD, Hypothyroidism, Dysarthria BIBA from [facility] for left hip pain s/p since Tuesday while being turned in bed. Pt is currently sleepy b/o pain meds, arousable but unable to provide detailed hx; c/o pain with moving. Per chart Fellow "Sister" (muslim) at bedside reported that Carlos took an XRay Tuesday, stated there was a femur fracture, but pt is hospice so she was not sent to ED. Pt continued to complain of pain and staff was unable to do basic care for her 2/2 her pain, prompting them to send her to the ED. 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: Parkinson's (sarcoidosis) Cardiovascular: Yes: HTN, Hyperlipdemia Pulmonary: Yes: Other (sarcoidosis) ...: No Psych: Yes: Depression Endocrine: Yes: Hypothyroidism - Smoking History Smoking history: Unknown if ever smoked Have you smoked in the past 12 months: No - Alcohol/Substance Use Hx Alcohol Use: No (WILFRED) History of Substance Use: reports: None - Social History Usual Living Arrangement: Yes: Jail History of Recent Travel: No Home Medications - Allergies Allergies/Adverse Reactions: Allergies Allergy/AdvReac Type Severity Reaction Status Date / Time No Known Drug Allergies Allergy Mild Verified 07/16/19 00:12 - Home Medications Home Medications: Ambulatory Orders Clopidogrel Bisulfate [Plavix -] 75 mg PO DAILY 12/12/12 Furosemide [Lasix -] 40 mg PO DAILY 12/12/12 Levothyroxine [Synthroid -] 75 mcg PO DAILY 12/12/12 Escitalopram Oxalate [Lexapro -] 30 mg PO HS 10/02/15 Metoprolol Succinate [Toprol XL -] 25 mg PO DAILY 10/02/15 Ascorbic Acid [Vitamin C] 500 mg PO TID 01/09/16 Mirtazapine [Remeron -] 45 mg PO HS 01/09/16 Cholecalciferol (Vitamin D3) [Vitamin D3] 1,000 unit PO DAILY 09/25/18 Cyanocobalamin (Vitamin B-12) [B-12 Compliance] 1,000 mcg IM ASDIR 09/25/18 Cyclosporine [Restasis] 1 each OS BID 09/25/18 Mirabegron [Myrbetriq] 25 mg PO DAILY 09/25/18 Omeprazole 20 mg PO DAILY 09/25/18 Polyethylene Glycol 3350 [Miralax 119 gm Btl -] 17 gm PO DAILY 09/25/18 Pramipexole Dihydrochloride [Mirapex -] 0.5 mg PO HS 09/25/18 Bupropion HCl [Bupropion HCl Sr] 100 mg PO DAILY 05/04/19 Pregabalin [Lyrica -] 50 mg PO BID 05/04/19 Acetaminophen [Tylenol] 650 mg PO TID PRN 07/16/19 Bacitracin - [Bacitracin Topical Ointment -] 1 applic TP BID 07/16/19 Bisacodyl Suppository [Dulcolax Suppository -] 10 mg RC HS PRN 07/16/19 Bupropion HCl [Bupropion HCl ER] 100 mg PO DAILY 07/16/19 Carbidopa/Levodopa [Carbidopa-Levo ER 50-200 Tab] 1 each PO QID 07/16/19 Clotrimazole [Clotrimazole AF] 1 applic TP BID 07/16/19 Cran-Raspberry Flavor 30 ml PO DAILY 07/16/19 Ferrous Sulfate [Feosol] 325 mg PO DAILY 07/16/19 Fluoride (Sodium) [Denta 5000 Plus] 1 applic DT HS 07/16/19 Lactulose 10 gm PO DAILY PRN 07/16/19 Latanoprost 0.005% Eye Drops [Xalatan 0.005% Eye Drops -] 1 drop HS 07/16/19 Latanoprost 0.005% Eye Drops [Xalatan 0.005% Eye Drops -] 1 drop OS HS 07/16/19 Levomefolate/Algal Oil [l-Methylfolate Forte 7.5 mg Cp] 1 each PO AM 07/16/19 Lidocaine 4% Topical [Xylocaine 4% Topical] 1 applic MM DAILY 07/16/19 Multivitamin [Multiple Vitamins] 1 each PO DAILY 07/16/19 Nutritional Supplement [Hi-Javier] 4 oz PO TID 07/16/19 Ondansetron [Zofran -] 4 mg PO Q8H 07/16/19 Polyvinyl Alcohol/Povidone/Pf [Refresh Classic Eye Drops] 1 each OP Q3H Propylene Glycol/Peg 400/Pf [Systane 0.3-0.4% Eye Drops] 1 each OP QID 07/16/19 Tramadol HCl [Ultram] 50 mg PO Q8H PRN 07/16/19 Vit A/Vit C/Vit E/Zinc/Copper [Preservision Tablet] 2 each PO BID 07/16/19 Vitamin A & D Top Oint - [Vitamin A & D] 1 applic TP QSHIFT 07/16/19 Family Medical History Family History: Unremarkable Review of Systems - Review of Systems Constitutional: denies: Chills, Fever HENT: denies: Epistaxis Neck: denies: Stiffness, Swollen Glands Cardiovascular: denies: Edema Respiratory: denies: Cough, SOB Gastrointestinal: denies: Diarrhea, Rectal Bleeding, Vomiting, Vomiting Blood Genitourinary: denies: Hematuria Musculoskeletal: reports: Extremity Pain Integumentary: denies: Eczema, Erythema Neurological: reports: Confusion Hematology/Lymphatic: denies: Easily Bruised, Excessive Bleeding Physical Examination Vital Signs: Vital Signs Temperature 98.1 F 07/16/19 09:13 Pulse Rate 76 07/16/19 09:13 Respiratory Rate 20 07/16/19 09:13 Blood Pressure 117/45 L 07/16/19 09:13 O2 Sat by Pulse Oximetry (%) 95 07/16/19 09:00 Constitutional: Yes: Calm Eyes: Yes: Conjunctiva Clear HENT: Yes: Atraumatic Neck: Yes: Supple Cardiovascular: Yes: Regular Rate and Rhythm Respiratory: Yes: Diminished Gastrointestinal: Yes: Soft. No: Tenderness Renal/: No: Hematuria Extremities: Yes: Other (pain in L leg when trying to move) Edema: No Integumentary: No: Rash, Venous Stasis Changes Neurological: No: Facial Droop, Seizure Psychiatric: No: Agitated Labs: CBC, BMP 07/16/19 00:13 07/16/19 00:13 Imaging - Results X-ray: Report Reviewed Other: Report Reviewed Assessment/Plan 88 year old female with PMH Parkinson's Disease, HTN, CHF, Arthritis, PVD, Hypothyroidism, Dysarthria BIBA from [facility] for left hip pain s/p since Tuesday while being turned in bed. Xrays c/w L Hip fracture ortho eval; pain meds prn DVT pfx cardiology eval; f/u labs CXR prognosis guarded to review NH advanced directives and status d/w staff
--- NOTE | 2019-07-16 12:15 | CON.ORTH ---
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: Yes: Parkinson's (sarcoidosis) Cardio/Vascular: Yes: HTN, Hyperlipdemia Pulmonary: Yes: Other (sarcoidosis) ...: No Psych: Yes: Depression Endocrine: Yes: Hypothyroidism - Alcohol/Substance Use Hx Alcohol Use: (WILFRED) - Smoking History Smoking history: Unknown if ever smoked Have you smoked in the past 12 months: No Home Medications - Allergies Allergies/Adverse Reactions: Allergies Allergy/AdvReac Type Severity Reaction Status Date / Time No Known Drug Allergies Allergy Mild Verified 07/16/19 00:12 - Home Medications Home Medications: Ambulatory Orders Clopidogrel Bisulfate [Plavix -] 75 mg PO DAILY 12/12/12 Furosemide [Lasix -] 40 mg PO DAILY 12/12/12 Levothyroxine [Synthroid -] 75 mcg PO DAILY 12/12/12 Escitalopram Oxalate [Lexapro -] 30 mg PO HS 10/02/15 Metoprolol Succinate [Toprol XL -] 25 mg PO DAILY 10/02/15 Ascorbic Acid [Vitamin C] 500 mg PO TID 01/09/16 Mirtazapine [Remeron -] 45 mg PO HS 01/09/16 Cholecalciferol (Vitamin D3) [Vitamin D3] 1,000 unit PO DAILY 09/25/18 Cyanocobalamin (Vitamin B-12) [B-12 Compliance] 1,000 mcg IM ASDIR 09/25/18 Cyclosporine [Restasis] 1 each OS BID 09/25/18 Mirabegron [Myrbetriq] 25 mg PO DAILY 09/25/18 Omeprazole 20 mg PO DAILY 09/25/18 Polyethylene Glycol 3350 [Miralax 119 gm Btl -] 17 gm PO DAILY 09/25/18 Pramipexole Dihydrochloride [Mirapex -] 0.5 mg PO HS 09/25/18 Bupropion HCl [Bupropion HCl Sr] 100 mg PO DAILY 05/04/19 Pregabalin [Lyrica -] 50 mg PO BID 05/04/19 Acetaminophen [Tylenol] 650 mg PO TID PRN 07/16/19 Bacitracin - [Bacitracin Topical Ointment -] 1 applic TP BID 07/16/19 Bisacodyl Suppository [Dulcolax Suppository -] 10 mg RC HS PRN 07/16/19 Bupropion HCl [Bupropion HCl ER] 100 mg PO DAILY 07/16/19 Carbidopa/Levodopa [Carbidopa-Levo ER 50-200 Tab] 1 each PO QID 07/16/19 Clotrimazole [Clotrimazole AF] 1 applic TP BID 07/16/19 Cran-Raspberry Flavor 30 ml PO DAILY 07/16/19 Ferrous Sulfate [Feosol] 325 mg PO DAILY 07/16/19 Fluoride (Sodium) [Denta 5000 Plus] 1 applic DT HS 07/16/19 Lactulose 10 gm PO DAILY PRN 07/16/19 Latanoprost 0.005% Eye Drops [Xalatan 0.005% Eye Drops -] 1 drop HS 07/16/19 Latanoprost 0.005% Eye Drops [Xalatan 0.005% Eye Drops -] 1 drop OS HS 07/16/19 Levomefolate/Algal Oil [l-Methylfolate Forte 7.5 mg Cp] 1 each PO AM 07/16/19 Lidocaine 4% Topical [Xylocaine 4% Topical] 1 applic MM DAILY 07/16/19 Multivitamin [Multiple Vitamins] 1 each PO DAILY 07/16/19 Nutritional Supplement [Hi-Javier] 4 oz PO TID 07/16/19 Ondansetron [Zofran -] 4 mg PO Q8H 07/16/19 Polyvinyl Alcohol/Povidone/Pf [Refresh Classic Eye Drops] 1 each OP Q3H Propylene Glycol/Peg 400/Pf [Systane 0.3-0.4% Eye Drops] 1 each OP QID 07/16/19 Tramadol HCl [Ultram] 50 mg PO Q8H PRN 07/16/19 Vit A/Vit C/Vit E/Zinc/Copper [Preservision Tablet] 2 each PO BID 07/16/19 Vitamin A & D Top Oint - [Vitamin A & D] 1 applic TP QSHIFT 07/16/19 Physical Exam for Ortho Vital Signs: Vital Signs Temperature 98.1 F 07/16/19 09:13 Pulse Rate 76 07/16/19 09:13 Respiratory Rate 20 07/16/19 09:13 Blood Pressure 117/45 L 07/16/19 09:13 O2 Sat by Pulse Oximetry (%) 95 07/16/19 09:00 Labs: CBC, BMP 07/16/19 00:13 07/16/19 00:13 INR, PTT INR 1.19 (0.83-1.09) H 07/16/19 00:13 - Lower Extremity Hip: Yes: Left, Decreased ROM, Pain, Swelling, Other (nvi) Imaging - Results X-ray: Image Reviewed Assessment/Plan 88-year-old female with a past medical history significant for advanced Parkinson's disease, HTN, CHF, PVD, hypothyroidism presents to the emergency department from [facility] via EMS for intractable pain. [facility] reports, they rolled the patient in bed yesterday, following the patient complaining of left hip pain. The patient had an X-ray done yesterday, which was significant for a femur fracture. The patient presents today for intractable pain. The patient is on hospice care at the group home. a/p left femoral neck fx Risks and benefits were d/w pts proxy She will discuss with other family members and get back to us with a decision of conservative vs surgical treatment(leaning towards conservative/palliative care) pain control will await proxy decision d/w Dr. Jimenez
[2019-07-16] MEDS: VITAMINS A AND D TOPICAL OINTMENT 60 GM TUBE TP SCH ×3 (14:34→23:52)
--- NOTE | 2019-07-16 15:14 | ECHO ---
Name: NOMI GREENE Exam:Adult Echocardiogram Study Date: 07/16/2019 02:22 PM Age: 88 yrs Reason For Study: ef Height: 62 in Weight: 124 lb BSA: 1.6 m2 MMode/2D Measurements & Calculations IVSd: 0.82 cm Ao root diam: 2.6 cm LVIDd: 5.2 cm LA dimension: 3.0 cm LVIDs: 3.9 cm ACS: 1.6 cm LVPWd: 0.64 cm IVSs: 1.1 cm LVPWs: 0.93 cm EDV(Mala): 127.0 ml ESV(Mala): 66.0 ml RV S Ilan: 14.3 cm/sec Doppler Measurements & Calculations MV V2 max: 85.9 cm/sec MV E max ilan: 73.1 cm/sec MV max P.0 mmHg MV A max ilan: 86.9 cm/sec MV V2 mean: 62.2 cm/sec MV E/A: 0.84 MV mean P.7 mmHg MV dec time: 0.23 sec MV V2 VTI: 25.2 cm Ao V2 max: 128.0 cm/sec LV V1 max P.8 mmHg Ao max P.6 mmHg LV V1 mean P.5 mmHg Ao V2 mean: 93.3 cm/sec LV V1 max: 83.9 cm/sec Ao mean P.7 mmHg LV V1 mean: 58.4 cm/sec Ao V2 VTI: 29.6 cm LV V1 VTI: 18.7 cm MR max ilan: 351.4 cm/sec TR max ilan: 243.0 cm/sec MR max P.4 mmHg TR max P.7 mmHg PA V2 max: 73.1 cm/sec Med Peak E' Ilan: 6.6 cm/sec PA max P.1 mmHg Med E/e': 11.0 Lat Peak E' Ilan: 7.7 cm/sec Lat E/e': 9.5 Procedure The study was technically difficult with many images being suboptimal in quality. Study Quality: Fair . Left Ventricle The left ventricle is normal in size. There is mild concentric left ventricular hypertrophy. The left ventricular ejection fraction is normal. Ejection Fraction = 65-70%. The transmitral spectral Doppler flow pattern is suggestive of impaired LV relaxation. Right Ventricle The right ventricle is normal in size and function. Atria Normal left and right atrial size and function. Mitral Valve The mitral valve is grossly normal. There is trace to mild mitral regurgitation. Tricuspid Valve The tricuspid valve is not well visualized, but is grossly normal. There is mild tricuspid regurgitat ion. Right ventricular systolic pressure is elevated at 30-40mmHg. Aortic Valve The aortic valve is normal in structure and function. Pulmonic Valve The pulmonic valve is not well visualized. Great Vessels The aortic root is not well visualized. Pericardium/Pleura There is no pericardial effusion. FAt pad. Interpretation Summary LV: Normal size, mild LVH,normal systolic function, EF 65%, impaired relaxation RV: Normal Trace to mild MR Mild TR, normal RVSP. Santi Anton 07/16/2019 03:13 PM
[2019-07-16] MEDS: ESCITALOPRAM OXALATE 10 MG TABLET PO SCH (21:31)
[2019-07-16] MEDS: PRAMIPEXOLE DIHYDROCHLORIDE 0.5 MG TABLET PO SCH (21:31)
[2019-07-16] MEDS ORDERED: MIRTAZAPINE 30 MG TABLET (FP) PO SCH (22:00)
[2019-07-16] MEDS ORDERED: LATANOPROST 0.005% OPHTH SOLN 2.5ML BOTTLE OS SCH (22:00)
[2019-07-16] MEDS ORDERED: PT OWN MED DRAWER 7, Y5N ONE (22:31)
[2019-07-16] MEDS: ARTIFICIAL TEARS (POLYVINYL ALCOHOL) OPTH DROPS OU PRN (23:52)
[2019-07-16] MEDS: LATANOPROST 0.005% OPHTH SOLN 2.5ML BOTTLE OU SCH (23:55)
[2019-07-16] MEDS: HEPARIN NA (PORCINE) 5,000 UNITS/ML 1ML VIAL SQ SCH (23:55)
[2019-07-17] MEDS: VITAMINS A AND D TOPICAL OINTMENT 60 GM TUBE TP SCH ×3 (06:14→22:15)
[2019-07-17] MEDS: LEVOTHYROXINE NA 75 MCG TABLET (FP) PO SCH (06:15)
[2019-07-17] MEDS ORDERED: [UNRECOGNIZED DRUG - OTHER] PO SCH (07:00)
[2019-07-17] MEDS ORDERED: ALGAL OIL PO SCH (07:00)
[2019-07-17] MEDS ORDERED: LEVOMEFOLATE PO SCH (07:00)
--- NOTE | 2019-07-17 07:56 | PN ---
Progress Note (short form) - Note Progress Note: Ortho Spoke with proxy at length regarding conservative vs surgical management. At this time they would like conservative management and no surgical intervention. Pt is on hospice and would like a palliative care consult. a/p No further Orthopedic intervention at this time pain control palliative care ok to d/c once medically cleared d/w Dr. Jimenez
[2019-07-17] MEDS: LIDOCAINE 5% TOPICAL PATCH TP SCH (09:31)
[2019-07-17] MEDS: HEPARIN NA (PORCINE) 5,000 UNITS/ML 1ML VIAL SQ SCH ×2 (09:33→22:14)
[2019-07-17] MEDS: CLOTRIMAZOLE 1% CREAM 15 GM TUBE TP SCH ×2 (09:35→22:15)
[2019-07-17] MEDS: BACITRACIN 15 GM TUBE TOPICAL OINTMENT TP SCH ×2 (09:35→22:15)
[2019-07-17] MEDS: PREGABALIN 50 MG CAPSULE PO SCH ×2 (09:36→21:17)
[2019-07-17] MEDS: CHOLECALCIFEROL (VIT D3) 1,000 UNIT (25 MCG) TABLET PO SCH (09:37)
[2019-07-17] MEDS: metoPROLOL SUCCINATE 25 MG TAB.SR.24H (FP) PO SCH (09:37)
[2019-07-17] MEDS: POLYETHYLENE GLYCOL 3350 119 GM BTL PO SCH (09:37)
[2019-07-17] MEDS: MULTIVITAMINS (DAILY MVI) TABLET (FP) PO SCH (09:37)
--- NOTE | 2019-07-17 12:19 | PN ---
Progress Note (short form) - Note Progress Note: s: complains of hip pain. no chest pain, palps, dizziness, dyspnea Current Medications Acetaminophen (Tylenol -) 650 mg PO TID PRN PRN Reason: PAIN 1-4 Acetaminophen (Ofirmev Injection -) 1,000 mg IVPB Q8H PRN PRN Reason: PAIN SCALE 3-10 Last Admin: 07/16/19 18:27 Dose: 1,000 mg Artificial Tears (Artificial Tears) 1 drop OU QID PRN PRN Reason: DRY EYES Last Admin: 07/16/19 23:52 Dose: 1 drop Bacitracin (Bacitracin -) 1 applic TP BID [facility] Last Admin: 07/17/19 09:35 Dose: 1 applic Bisacodyl (Dulcolax Suppository -) 10 mg RC HS PRN PRN Reason: CONSTIPATION Bupropion HCl (Wellbutrin Xl -) 150 mg PO DAILY [facility] Last Admin: 07/17/19 09:37 Dose: Not Given Carbidopa/Levodopa (Sinemet *Cr* 50/200 -) 1 combo PO QID [facility] Last Admin: 07/17/19 09:37 Dose: Not Given Cholecalciferol (Vitamin D3 -) 1,000 unit PO DAILY [facility] Last Admin: 07/17/19 09:37 Dose: Not Given Clotrimazole (Lotrimin 1% Cream -) 1 applic TP BID [facility] Last Admin: 07/17/19 09:35 Dose: 1 applic Escitalopram Oxalate (Lexapro -) 30 mg PO HS [facility] Last Admin: 07/16/19 21:31 Dose: Not Given Heparin Sodium (Porcine) (Heparin -) 5,000 unit SQ BID [facility] Last Admin: 07/17/19 09:33 Dose: 5,000 unit Sodium Chloride (1/2 Normal Saline) 1,000 mls @ 42 mls/hr IV ASDIR [facility] Last Admin: 07/16/19 15:35 Dose: 42 mls/hr Lactulose (Cephulac (Oral Use)) 10 gm PO DAILY PRN PRN Reason: CONSTIPATION Latanoprost (Xalatan 0.005% Eye Drops -) 1 drop OU HS [facility] Last Admin: 07/16/19 23:55 Dose: Not Given Levothyroxine Sodium (Synthroid -) 75 mcg PO DAILY@0700 [facility] Last Admin: 07/17/19 06:15 Dose: Not Given Lidocaine (Lidoderm Patch -) 1 patch TP DAILY [facility] Last Admin: 07/17/19 09:31 Dose: 1 patch Metoprolol Succinate (Toprol Xl -) 25 mg PO DAILY [facility] Last Admin: 07/17/19 09:37 Dose: Not Given Mirtazapine 30 mg/ Mirtazapine (15 mg) 45 mg PO HS [facility] Multivitamins/Minerals/Vitamin C (Tab-A-Vit -) 1 tab PO DAILY [facility] Last Admin: 07/17/19 09:37 Dose: Not Given Non-Formulary Medication (Cyclosporine [Restasis]) 1 each OS BID [facility] Non-Formulary Medication (Levomefolate/Algal Oil [L-Methylfolate Forte 7.5 Mg Cp ]) 1 each PO AM [facility] Non-Formulary Medication (Mirabegron [Myrbetriq]) 25 mg PO DAILY [facility] Ondansetron HCl (Zofran -) 4 mg PO Q8H PRN PRN Reason: NAUSEA Polyethylene Glycol (Miralax (For Daily Use) -) 17 gm PO DAILY [facility] Last Admin: 07/17/19 09:37 Dose: Not Given Pramipexole Dihydrochloride (Mirapex -) 0.5 mg PO HS [facility] Last Admin: 07/16/19 21:31 Dose: Not Given Pregabalin (Lyrica -) 50 mg PO BID [facility] Last Admin: 07/17/19 09:36 Dose: Not Given Tramadol HCl (Ultram -) 50 mg PO Q8H PRN PRN Reason: PAIN LEVEL 5-10 Vitamin A/Vitamin D (Vitamin A & D Top Oint -) 1 applic TP QSHIFT [facility] Last Admin: 07/17/19 06:14 Dose: 1 applic Vital Signs Period Temp Pulse Resp BP Sys/Benito Pulse Ox Last 24 Hr 97 F-97.9 F 70-100 20-20 104-124/55-69 95 Constitutional: Yes: Well Nourished, No Distress Eyes: No: Sclera Icterus HENT: No: Nasal Congestion Neck: No: Decreased ROM Respiratory: Yes: Regular, CTA Bilaterally (not taking deep breaths). No: Accessory Muscle Use, Rales Gastrointestinal: Yes: Normal Bowel Sounds. No: Distention, Hepatomegaly, Palpable Mass, Tenderness Cardiovascular: Yes: Regular Rate and Rhythm JVD: No Carotid Bruit: No PMI: Non-Displaced Heart Sounds: Yes: S1, S2. No: Gallop Murmur: No: Systolic Murmur, Diastolic Murmur Musculoskeletal: Yes: Other (No kyphosis) Extremities: No: Cool, Cyanosis Edema: No Peripheral Pulses: 2+ Left Carotid, 2+ Right Carotid, 2+ Left Doralis Pedis, 2+ Right Dorsalis Pedis Integumentary: No: Jaundice Neurological: No: Seizure, Tremors Psychiatric: No: Agitated Assessment/Plan ECG: NSR, WNL (QT not signif prolonged) CXR: acute infiltrates upper lobes and R base on chronic findings echo 07/2019 nl LV function, E/A reversal, mild TR, mild LVH chronic diastolic HF - nl EF on echo here, on lasix at home - holding here as she is dry, observe closely with gentle hydration RICCO on CKD, mild hypernatremia/hyperK: -bun creat 70s/3.3 from 30s/2.1 in 05/03 -gentle hydration: changed NS to 1/2 NS to avoid worsening hyperNa HTN: -bp controlled -cont same treatment anemia: -acute on chronic (vs 05/03) -per primary hip fracture, preop CV eval: -pt at hi risk of surgical CV complications given presently with RICCO as well as electrolyte disturbances -no absolute cardiac contraindications to hip surgery if needed - preferring conservative management at this point
[2019-07-17] MEDS ORDERED: CEFTRIAXONE 1 GM in DEXTROSE 5%-WATER - 50 ML IVPB SCH (12:45)
--- NOTE | 2019-07-17 12:47 | PN ---
Progress Note, Physician History of Present Illness: Pt w/o fever, SOB, cough, CP, abd pain. - Current Medication List Current Medications: Active Medications Acetaminophen (Tylenol -) 650 mg PO TID PRN PRN Reason: PAIN 1-4 Acetaminophen (Ofirmev Injection -) 1,000 mg IVPB Q8H PRN PRN Reason: PAIN SCALE 3-10 Last Admin: 07/16/19 18:27 Dose: 1,000 mg Artificial Tears (Artificial Tears) 1 drop OU QID PRN PRN Reason: DRY EYES Last Admin: 07/16/19 23:52 Dose: 1 drop Bacitracin (Bacitracin -) 1 applic TP BID [facility] Last Admin: 07/17/19 09:35 Dose: 1 applic Bisacodyl (Dulcolax Suppository -) 10 mg RC HS PRN PRN Reason: CONSTIPATION Bupropion HCl (Wellbutrin Xl -) 150 mg PO DAILY [facility] Last Admin: 07/17/19 09:37 Dose: Not Given Carbidopa/Levodopa (Sinemet *Cr* 50/200 -) 1 combo PO QID [facility] Last Admin: 07/17/19 09:37 Dose: Not Given Cholecalciferol (Vitamin D3 -) 1,000 unit PO DAILY [facility] Last Admin: 07/17/19 09:37 Dose: Not Given Clotrimazole (Lotrimin 1% Cream -) 1 applic TP BID [facility] Last Admin: 07/17/19 09:35 Dose: 1 applic Escitalopram Oxalate (Lexapro -) 30 mg PO HS [facility] Last Admin: 07/16/19 21:31 Dose: Not Given Heparin Sodium (Porcine) (Heparin -) 5,000 unit SQ BID [facility] Last Admin: 07/17/19 09:33 Dose: 5,000 unit Sodium Chloride (1/2 Normal Saline) 1,000 mls @ 75 mls/hr IV ASDIR [facility] Ceftriaxone Sodium 1,000 mg/ (Dextrose) 50 mls @ 100 mls/hr IVPB DAILY [facility] Lactulose (Cephulac (Oral Use)) 10 gm PO DAILY PRN PRN Reason: CONSTIPATION Latanoprost (Xalatan 0.005% Eye Drops -) 1 drop OU HS [facility] Last Admin: 07/16/19 23:55 Dose: Not Given Levothyroxine Sodium (Synthroid -) 75 mcg PO DAILY@0700 [facility] Last Admin: 07/17/19 06:15 Dose: Not Given Lidocaine (Lidoderm Patch -) 1 patch TP DAILY [facility] Last Admin: 07/17/19 09:31 Dose: 1 patch Metoprolol Succinate (Toprol Xl -) 25 mg PO DAILY [facility] Last Admin: 07/17/19 09:37 Dose: Not Given Mirtazapine 30 mg/ Mirtazapine (15 mg) 45 mg PO HS [facility] Multivitamins/Minerals/Vitamin C (Tab-A-Vit -) 1 tab PO DAILY [facility] Last Admin: 07/17/19 09:37 Dose: Not Given Non-Formulary Medication (Cyclosporine [Restasis]) 1 each OS BID [facility] Non-Formulary Medication (Levomefolate/Algal Oil [L-Methylfolate Forte 7.5 Mg Cp ]) 1 each PO AM [facility] Non-Formulary Medication (Mirabegron [Myrbetriq]) 25 mg PO DAILY [facility] Ondansetron HCl (Zofran -) 4 mg PO Q8H PRN PRN Reason: NAUSEA Polyethylene Glycol (Miralax (For Daily Use) -) 17 gm PO DAILY [facility] Last Admin: 07/17/19 09:37 Dose: Not Given Pramipexole Dihydrochloride (Mirapex -) 0.5 mg PO HS [facility] Last Admin: 07/16/19 21:31 Dose: Not Given Pregabalin (Lyrica -) 50 mg PO BID [facility] Last Admin: 07/17/19 09:36 Dose: Not Given Tramadol HCl (Ultram -) 50 mg PO Q8H PRN PRN Reason: PAIN LEVEL 5-10 Vitamin A/Vitamin D (Vitamin A & D Top Oint -) 1 applic TP QSHIFT [facility] Last Admin: 07/17/19 06:14 Dose: 1 applic - Objective Vital Signs: Vital Signs Temperature 97.5 F L 07/17/19 05:50 Pulse Rate 75 07/17/19 05:50 Respiratory Rate 20 07/17/19 05:50 Blood Pressure 124/69 07/17/19 05:50 O2 Sat by Pulse Oximetry (%) 95 07/16/19 21:00 Constitutional: Yes: No Distress, Calm Eyes: Yes: Other (dry oral mucosa) Cardiovascular: Yes: Regular Rate and Rhythm, S1, S2 Respiratory: Yes: Regular, CTA Bilaterally. No: Rales Gastrointestinal: Yes: Normal Bowel Sounds, Soft. No: Tenderness Edema: No Neurological: Yes: Alert, Oriented Labs: CBC, BMP 07/16/19 00:13 07/16/19 00:13 INR, PTT INR 1.19 (0.83-1.09) H 07/16/19 00:13 Problem List - Problems (1) Hip fracture Code(s): S72.009A - FRACTURE OF UNSP PART OF NECK OF UNSP FEMUR, INIT (2) RICCO (acute kidney injury) Code(s): N17.9 - ACUTE KIDNEY FAILURE, UNSPECIFIED (3) UTI (urinary tract infection) Code(s): N39.0 - URINARY TRACT INFECTION, SITE NOT SPECIFIED Qualifiers: Urinary tract infection type: acute cystitis (4) Hyperkalemia Code(s): E87.5 - HYPERKALEMIA (5) Parkinsonism Code(s): G20 - PARKINSON'S DISEASE Assessment/Plan IVF rate was increased. Labs are pending. Ortho and Cardio consults are appreciated. Ortho note wasnoted. Start IV Rocephine AM labs . Pt's condition was reviewed with pt's nurse at bed side.
[2019-07-17 13:41] LABS: HEMOGLOBIN 9.3 GM/dL (10.7-15.3); MCH 28.5 pg (25.7-33.7); MCHC 30.9 g/dl (32.0-36.0); MEAN CELL VOLUME 92.3 fl (80-96); MEAN PLT VOLUME 9.7 fl (7.5-11.1); PLATELET COUNT 208 K/MM3 (134-434); RBC 3.25 M/mm3 (3.60-5.2); RDW 18.9 % (11.6-15.6)
[2019-07-17 14:00] LABS: ALBUMIN 2.4 g/dl (3.4-5.0); BILIRUBIN,TOTAL 0.4 mg/dL (0.2-1); BLOOD UREA NITROGEN 62.4 mg/dL (7-18); CALCIUM 8.1 mg/dL (8.5-10.1); CREATININE 2.2 mg/dL (0.55-1.3); POTASSIUM 4.4 mmol/L (3.5-5.1)
[2019-07-17] MEDS: SODIUM CHLORIDE 0.45% 1,000 ML IV SCH (14:57)
--- NOTE | 2019-07-17 16:27 | DS ---
Physical Examination Vital Signs: Vital Signs Temperature 98.6 F 07/17/19 13:42 Pulse Rate 97 H 07/17/19 13:42 Respiratory Rate 20 07/17/19 13:42 Blood Pressure 129/70 07/17/19 13:42 O2 Sat by Pulse Oximetry (%) 95 07/16/19 21:00 Findings/Remarks: See today Progress Note Labs: CBC, BMP 07/17/19 13:20 07/17/19 13:20 Discharge Summary Problems reviewed: Yes Reason For Visit: ACUTE KIDNEY, HIP FRACTURE, INTERTROCANTERIC Current Active Problems RICCO (acute kidney injury) (Acute) Hip fracture (Acute) Hyperkalemia (Acute) Hospital Course: Pt is a resident of [facility] with significant PMHx/o Parkinson Ds, physical status decline noticed to have left hip pain and fracture (by XR), transferred to ER for Ortho treatment evaluation of hip pain, with moving in bed and toileting. Ortho and Cardio were called in consult. Pt was noticed to have RICCO, UTI. Pt's HCP decide conservative management of fracture and transfer back to [place] with Hospice care; pt's HCP (I spoke with Mrs Rose Ross, as pt' s nice Marva was not available) understands that pt requires IVF and IV abtx (pt is sleepy and cannot take PO meds) for management of RICCO and UTI and under Hospice care pt would not receive this treatment. To transfer pt back to [facility]. Condition: Guarded - Instructions Referrals: Nawaf Ladd MD [Primary Care Provider] - - Home Medications Comprehensive Discharge Medication List: Ambulatory Orders Clopidogrel Bisulfate [Plavix -] 75 mg PO DAILY 12/12/12 Furosemide [Lasix -] 40 mg PO DAILY 12/12/12 Levothyroxine [Synthroid -] 75 mcg PO DAILY 12/12/12 Escitalopram Oxalate [Lexapro -] 30 mg PO HS 10/02/15 Metoprolol Succinate [Toprol XL -] 25 mg PO DAILY 10/02/15 Ascorbic Acid [Vitamin C] 500 mg PO TID 01/09/16 Mirtazapine [Remeron -] 45 mg PO HS 01/09/16 Cholecalciferol (Vitamin D3) [Vitamin D3] 1,000 unit PO DAILY 09/25/18 Cyanocobalamin (Vitamin B-12) [B-12 Compliance] 1,000 mcg IM ASDIR 09/25/18 Cyclosporine [Restasis] 1 each OS BID 09/25/18 Mirabegron [Myrbetriq] 25 mg PO DAILY 09/25/18 Omeprazole 20 mg PO DAILY 09/25/18 Polyethylene Glycol 3350 [Miralax 119 gm Btl -] 17 gm PO DAILY 09/25/18 Pramipexole Dihydrochloride [Mirapex -] 0.5 mg PO HS 09/25/18 Bupropion HCl [Bupropion HCl Sr] 100 mg PO DAILY 05/04/19 Pregabalin [Lyrica -] 50 mg PO BID 05/04/19 Acetaminophen [Tylenol] 650 mg PO TID PRN 07/16/19 Bacitracin - [Bacitracin Topical Ointment -] 1 applic TP BID 07/16/19 Bisacodyl Suppository [Dulcolax Suppository -] 10 mg RC HS PRN 07/16/19 Bupropion HCl [Bupropion HCl ER] 100 mg PO DAILY 07/16/19 Carbidopa/Levodopa [Carbidopa-Levo ER 50-200 Tab] 1 each PO QID 07/16/19 Clotrimazole [Clotrimazole AF] 1 applic TP BID 07/16/19 Cran-Raspberry Flavor 30 ml PO DAILY 07/16/19 Ferrous Sulfate [Feosol] 325 mg PO DAILY 07/16/19 Fluoride (Sodium) [Denta 5000 Plus] 1 applic DT HS 07/16/19 Lactulose 10 gm PO DAILY PRN 07/16/19 Latanoprost 0.005% Eye Drops [Xalatan 0.005% Eye Drops -] 1 drop HS 07/16/19 Latanoprost 0.005% Eye Drops [Xalatan 0.005% Eye Drops -] 1 drop OS HS 07/16/19 Levomefolate/Algal Oil [l-Methylfolate Forte 7.5 mg Cp] 1 each PO AM 07/16/19 Lidocaine 4% Topical [Xylocaine 4% Topical] 1 applic MM DAILY 07/16/19 Multivitamin [Multiple Vitamins] 1 each PO DAILY 07/16/19 Nutritional Supplement [Hi-Javier] 4 oz PO TID 07/16/19 Ondansetron [Zofran -] 4 mg PO Q8H 07/16/19 Polyvinyl Alcohol/Povidone/Pf [Refresh Classic Eye Drops] 1 each OP Q3H Propylene Glycol/Peg 400/Pf [Systane 0.3-0.4% Eye Drops] 1 each OP QID 07/16/19 Tramadol HCl [Ultram] 50 mg PO Q8H PRN 07/16/19 Vit A/Vit C/Vit E/Zinc/Copper [Preservision Tablet] 2 each PO BID 07/16/19 Vitamin A & D Top Oint - [Vitamin A & D] 1 applic TP QSHIFT 07/16/19
[2019-07-17] MEDS: ESCITALOPRAM OXALATE 10 MG TABLET PO SCH (21:17)
[2019-07-17] MEDS: PRAMIPEXOLE DIHYDROCHLORIDE 0.5 MG TABLET PO SCH (21:18)
[2019-07-17] MEDS: LATANOPROST 0.005% OPHTH SOLN 2.5ML BOTTLE OU SCH (21:18)
[2019-07-17] MEDS ORDERED: MIRTAZAPINE 30 MG, MIRTAZAPINE 15 MG PO SCH (22:00)
[2019-07-17] MEDS: ARTIFICIAL TEARS (POLYVINYL ALCOHOL) OPTH DROPS OU PRN (22:15)
[2019-07-18] MEDS: SODIUM CHLORIDE 0.45% 1,000 ML IV SCH (05:41)
[2019-07-18 05:57] VITALS: BP 115/67; PULSE 85; TEMP 99.1
[2019-07-18] MEDS: LEVOTHYROXINE NA 75 MCG TABLET (FP) PO SCH (06:15)
[2019-07-18] MEDS: VITAMINS A AND D TOPICAL OINTMENT 60 GM TUBE TP SCH (06:18)
== END 2019-07-18 09:53 | DRG 543 ==
LOC: JER 00:06 → SUPCPDRO 00:06 → JERBED 01:34 → J7W 04:02 → J6S 19:42
PROVIDERS: ADMIT Specialist; ATTEND Specialist
PROC: 0T2DX0Z Change Drainage Device in Urethra, External Approach (ICD-10-PCS; principal; 2019-07-16)
DX: M84.452A Pathological fracture, left femur, initial encounter for fracture (principal); N17.9 Acute kidney failure, unspecified; I13.0 Hypertensive heart and chronic kidney disease with heart failure and stage 1 through stage 4 chronic kidney disease, or unspecified chronic kidney disease; I50.32 Chronic diastolic (congestive) heart failure; N39.0 Urinary tract infection, site not specified; E87.0 Hyperosmolality and hypernatremia; N18.9 Chronic kidney disease, unspecified; M25.552 Pain in left hip; G20 Parkinson's disease; M19.90 Unspecified osteoarthritis, unspecified site; I73.9 Peripheral vascular disease, unspecified; E03.9 Hypothyroidism, unspecified; E87.5 Hyperkalemia; R47.1 Dysarthria and anarthria; E78.5 Hyperlipidemia, unspecified; F32.9 Major depressive disorder, single episode, unspecified; D86.9 Sarcoidosis, unspecified; D64.9 Anemia, unspecified
CPT/HCPCS: 36415; 70450-TC; 71045-TC-FY; 72125-TC; 72170-TC-FY; 80053; 81003; 85025; 85027; 85610; 85730; 86850; 86900; 86901; 87086; 87186; 93005; 93010; 93306-TC; 99285-25; J0131; J1644; J7030